=== PATIENT | female | born 1935 | race Caucasian/White ===

== ENCOUNTER → 2019-08-31 | Outpatient (CLI) | payer MEDICARE ==
--- NOTE | 2019-08-31 11:22 | US ---
EXAMINATION TYPE: US carotid duplex BILAT DATE OF EXAM: 08/31/2019 COMPARISON: NONE CLINICAL HISTORY: I65.29 CAROTID ARTERY STENOSIS. HTN, hx TIA x 7 years ago EXAM MEASUREMENTS: RIGHT: Peak Systolic Velocity (PSV) cm/sec ----- Right CCA: 54.8 ----- Right ICA: 143.7 ----- Right ECA: 73.6 ICA/CCA ratio: 2.6 RIGHT: End Diastole cm/sec ----- Right CCA: 8.7 ----- Right ICA: 45.1 ----- Right ECA: 0.0 LEFT: Peak Systolic Velocity (PSV) cm/sec ----- Left CCA: 60.1 ----- Left ICA: 111.3 ----- Left ECA: 61.8 ICA/CCA ratio: 1.9 LEFT: End Diastole cm/sec ----- Left CCA: 0.0 ----- Left ICA: 45.1 ----- Left ECA: 0.0 VERTEBRALS (direction of flow): Right Vertebral: Antegrade Left Vertebral: Antegrade Rhythm: Arrhythmia Plaque seen in bilateral bulbs and CCA. Elevated right distal ICA velocities. Right CCA significant stenosis. Bilateral wall thickening. IMPRESSION: 1. Bilateral atherosclerotic plaque with findings suggestive of a 50-69% stenosis involving the proxi mal right ICA. Correlate with dedicated CTA as clinically warranted. Criteria for Assigning % of Stenosis / Diameter reduction (Estimation based on the indirect measurements of the internal carotid artery velocities (ICA PSV). 1. Normal (no stenosis)=ICA PSV < 125 cm/s: ratio < 2.0: ICA EDV<40 cm/s. 2. Less than 50% stenosis=ICA PSV < 125 cm/s: ratio < 2.0: ICA EDV<40 cm/s. 3. 50 to 69% stenosis=ICA PSV of 125 to 230 cm/s: ration 2.0 ? 4.0: ICA EDV 40-100 cm/s. 4. Greater than 70% stenosis to near occlusion= ICA PSV > 230 cm/s: ratio > 4.0: ICA EDV > 100 cm/s. 5. Near occlusion= ICA PSV velocities may be low or undetectable: variable ratio and ICA EDV. 6. Total occlusion=unable to detect flow.
== END | disposition home or self-care (01) ==
LOC: RADUSWWP 10:52
PROVIDERS: ATTEND Family Medicine
DX: I65.23 Occlusion and stenosis of bilateral carotid arteries (principal)
CPT/HCPCS: 93880

== ENCOUNTER → 2021-09-03 | Outpatient (CLI) | payer MEDICARE | END | disposition home or self-care (01) | LOC: LABPAT 08:08 | PROVIDERS: ATTEND Orthopaedic Surgery | DX: Z01.812 Encounter for preprocedural laboratory examination (principal); M19.012 Primary osteoarthritis, left shoulder | CPT/HCPCS: 87070 ==

== ENCOUNTER 2021-09-04 06:20 | Observation (INO) | payer MEDICARE ==
[2021-08-28 11:49] VITALS: BMI 22.8
--- NOTE | 2021-09-03 10:36 | HP ---
HISTORY AND PHYSICAL CHIEF COMPLAINT: Left shoulder pain. HISTORY OF PRESENT ILLNESS: The patient is an 86-year-old retired female who presents with progressive left shoulder pain for the past several years, worsening over the past several months. She notes catching and pain with certain movements. She has night symptoms. She notes she is significantly limited because of this. She has tried previous conservative treatments to include anti-inflammatory medications and analgesics. She notes it limits her daily. PAST MEDICAL HISTORY: Significant for hypertension and transient ischemic attack, arthritis. PAST SURGICAL HISTORY: Significant for previous right total shoulder arthroplasty, previous olecranon and patellar fracture fixation. CURRENT MEDICATIONS: Aggrenox, Ambien, Lipitor, Norvasc, Zoloft, Lyrica, oxybutynin, oxybutynin, trazodone and Tylenol. ALLERGIES: SHE DENIES ISA DRUG ALLERGIES. FAMILY HISTORY: Noncontributory. SOCIAL HISTORY: Negative for current tobacco use; however, she quit in 1997. REVIEW OF SYSTEMS: Sixteen-point review of systems otherwise reviewed and is noncontributory. PHYSICAL EXAMINATION: On examination, the patient is approximately 4 feet 11 inches, 112 pounds of mesomorphic habitus. HEENT exam is nonfocal. Neck is supple. On examination of her left shoulder, she is tender about the anterior subacromial space. She has moderate crepitus. Active range of motion: Forward elevation 135 degrees, external rotation with arm to side 40 degrees, internal rotation to T12. Motor strength is 5 minus over 5 for abduction and external rotation. Impingement test, Neer test and Speed test are positive. Her distal neurovascular exam appears intact in the left upper extremity. AP and scapular outlet views along with axillary lateral views of the left shoulder show severe glenohumeral joint osteoarthrosis with [id number] changes and ossific loose bodies. The humeral head to acromial distance appears to be maintained. IMPRESSION: 1. Severe left glenohumeral joint osteoarthrosis. 2. History of transient ischemic attacks. RECOMMENDATIONS: I talked to the patient at length regarding her condition along with treatment options. At this point she is quite symptomatic and limited because of pain related to her osteoarthrosis despite conservative measures. After thorough discussion, she opted to proceed with surgery. We will plan to proceed with left total shoulder arthroplasty. Risks and benefits were discussed at length in layman's terms. She underwent preoperative medical evaluation by Dr. Puri. JOSSE / JOSEPH: [id number] /
[~2021-09-04 06:20] MED LIST: ACETAMINOPHEN TAB 500 MG TAB PO PRN; LACTATED RINGERS 1,000 ML IV SCH; MELOXICAM 7.5 MG TAB PO PRN; ONDANSETRON 4 MG/2 ML VIAL IVP ONE; TRANEXAMIC ACID 1,000 MG in SODIUM CHLORIDE 0.9% 100 ML IVPB PRN; fentaNYL (PF) 50 MCG/ML 2 ML AMP IV PRN
[2021-09-04] MEDS ORDERED: LIDOCAINE 1% (10MG/ML) FOR IV START INTRADERMA ONE (06:57)
[2021-09-04] MEDS ORDERED: MIDAZOLAM 2 MG/2 ML VIAL IVP ONE (07:07)
[2021-09-04] MEDS ORDERED: PROPOFOL 10 MG/ML 20 ML VIAL IV ONE (07:50)
[2021-09-04] MEDS ORDERED: fentaNYL (PF) 50 MCG/ML 2 ML AMP ONE (07:50)
[2021-09-04] MEDS ORDERED: TRANEXAMIC ACID 1,000 MG/10 ML VIAL ONE (07:50)
[2021-09-04] MEDS ORDERED: WATER FOR INJECTION, STERILE 10 ML VIAL IV ONE (07:50)
[2021-09-04] MEDS ORDERED: SODIUM CHLORIDE 0.9% 100 ML BAG ONE (07:50)
[2021-09-04] MEDS ORDERED: SUCCINYLCHOLINE CHLORIDE 100 MG/5 ML SYR IV ONE (07:50)
[2021-09-04] MEDS ORDERED: PHENYLEPHRINE-0.9% NACL SYG 1,000 MCG/10 ML SYRINGE ONE (07:50)
[2021-09-04] MEDS ORDERED: ROPIVACAINE 5 MG/ML 30 ML VIAL ONE ×2 (07:50)
[2021-09-04] MEDS ORDERED: ROCURONIUM 10 MG/ML (5 ML VIAL) IV ONE (07:50)
[2021-09-04] MEDS ORDERED: ePHEDrine 50 MG/ML 1 ML AMP ONE (07:50)
[2021-09-04] MEDS ORDERED: ONDANSETRON 4 MG/2 ML VIAL ONE (07:50)
[2021-09-04] MEDS ORDERED: ceFAZolin 1,000 MG in SODIUM CHLORIDE 0.9% 1,000 ML IRRIGATION ONE (08:32)
[2021-09-04] MEDS ORDERED: LACTATED RINGERS 1,000 ML IV ONE (09:27)
[2021-09-04] MEDS ORDERED: HYDROmorphone 0.5 MG/0.5 ML SYRINGE IVP PRN (09:41)
[2021-09-04] MEDS ORDERED: SENNOSIDES-DOCUSATE SODIUM 1 EACH TAB PO PRN (09:41)
--- NOTE | 2021-09-04 10:00 | P.OP ---
Date of Procedure: 09/04/21 Preoperative Diagnosis: Severe left glenohumeral joint osteoarthrosis Postoperative Diagnosis: Same Procedure(s) Performed: Left total shoulder arthroplasty Implants: [employer] size 10 press-fit humeral stem, size 10 body, 44 x 18 eccentric humeral head, 44 mm cemented pegged glenoid component. Anesthesia: isidra BERRIOS Surgeon: Jake Roger .Net Programmer #1: Douglas Grimm Estimated Blood Loss (ml): 100 Pathology: other (Humeral head) Condition: stable Disposition: PACU Indications for Procedure: The patient's an 86 year old female who presents with progressive left shoulder pain secondary osteoarthrosis despite conservative measures. A discussion of the risks and benefits of operative intervention versus continued conservative measures was made with patient. She opted to proceed with surgery. Operative risks to include infection, neurovascular injury, development of blood clots, fracture, possible component loosening/failure need for subsequent procedures was discussed. Informed consent was obtained. Operative Findings: As below Description of Procedure: The patient was brought to the operating room, and after induction of general anesthesia was placed in the beachchair position. The bony prominences were appropriately padded. The right upper extremity was prepped and draped in normal fashion. A deltopectoral incision was then made lateral to the coracoid process extending approximately 12 cm. The skin was incised sharply. Subcutaneous tissues were divided bluntly. Electrocautery was used for hemostasis. The deltopectoral interval was identified and the cephalic vein gently retracted laterally with the deltoid. Subdeltoid adhesions were bluntly dissected. A self-retaining retractor was placed. The clavipectoral fascia was opened and the conjoined tendon gently retracted medially. The upper one third of the pectoralis major was released to help facilitate exposure. The biceps was identified and the sheath was opened. The rotator interval was opened. The biceps was tenotomized and allowed to retract distally. The lesser tuberosity osteotomy was performed with a small sagittal saw. This completed with an osteotome. The humeral head was then exposed releasing the capsule off the humeral neck. The shoulder was gently dislocated. A starting hole was made in the head in line with the humeral shaft. The shaft was reamed by hand up to 10 mm. There is good distal chatter. The cutting guide was placed planning on a cut flush with the rotator cuff insertion and 30 of retroversion. The cutting block was pinned in place. The humeral head cut was then made. This measured most appropriately at 44 x 18 mm. Residual inferior osteophytes were carefully removed flush with the sac and [place] cortical bone. A posterior glenoid retractor was placed. The glenoid was then exposed releasing the labrum from the 6-12 o'clock position. Residual labral tissue was removed. The glenoid sized most appropriate 44 mm. A guidewire was then inserted planning on the appropriate version. The glenoid was reamed down to a bleeding bony surface. The central pedicle was drilled. The alignment guide was placed in the peripheral peg holes drilled. The trial size 44 mm glenoid was placed and was fully seated. There was good anterior to posterior and inferior to superior fit. The trial component was removed. Pulsatile lavage was utilized. The bony surface was dried. The peripheral peg holes were then pressurized with cement utilizing a syringe. Excess cement was removed. A central peg glenoid was then placed and was fully seated. This was gently impacted. This was held in place until the cement had sufficiently hardened. Attention was then paid again towards preparing the proximal humerus. The appropriate broach was placed in 30 of retroversion and was fully seated. An eccentric 44 x 18 mm humeral head was placed. The shoulder was gently reduced. It was taken through a range of motion. It was felt to be stable in flexion and extension with internal and external rotation. I felt there was adequate advent of soft tissue tension. The shoulder was gently dislocated. The trial components were then removed. A #2 Ethibond was placed laterally for reattachment of the lesser tuberosity. The humeral stem was inserted in 30 of retroversion and was fully seated. There was good rotational stability. The eccentric 44 x 18 mm humeral head was gently impacted. The shoulder was then gently reduced and taken through range of motion and was felt to be stable. Pulsatile lavage was utilized. Lesser tuberosity was reattached utilizing #2 Ethibond suture. The rotator interval was closed with #2 Ethibond suture. She had minimal drainage at this point therefore a deep drain was not placed. The deltopectoral interval was closed with interrupted 2-0 Vicryl sutures. The subcu tissues were reapproximated with interrupted 2-0 Vicryl sutures. The skin was reapproximated with 3-0 subcuticular Prolene suture. Steri-Strips were applied. A sterile dressing was applied in addition to a sling. The patient was then awoken from general anesthesia and transferred to recovery room in good condition. Blood loss was estimated at 100 mL. No complications were incurred. Sponge and needle counts were correct at the end the case. Douglas HINKLE assisted during the major components the case to include positioning, exposure, implantation, and closure.
--- NOTE | 2021-09-04 10:12 | P.ANPRN ---
Procedure Note - Anesthesia - Nerve Block Performed Left Interscalene Single Time Out Performed: Yes ([id number]) Date of Procedure: 09/04/21 Procedure Start Time: 07:08 Procedure Stop Time: 07:13 Location of Patient: PreOp Indication: Acute Post-Operative Pain, Requested by Surgeon Specifically requested for management of pain by : Jake Roger Sedation Type: Sedate with meaningful contact maintained Preparation: Sterile Prep Position: Supine Catheter: None Needle Types: Pajunk Needle Gauge: 21 Ultrasound used to visualize needle placement: Yes Ultrasound used to observe medication spread: Yes Injectate: 0.5% Ropivacaine (see comment for volume) (20cc) Blood Aspirated: No Pain Paresthesia on Injection Noted: No Resistance on Injection: Normal Image Stored and Saved: Yes Events: Uneventful and Well Tolerated
--- NOTE | 2021-09-04 10:24 | XR ---
EXAMINATION TYPE: XR shoulder limited LT DATE OF EXAM: 09/04/2021 COMPARISON: None HISTORY: Left shoulder arthroplasty TECHNIQUE: AP left shoulder FINDINGS: There is placement of the left shoulder prosthesis. Some degenerative changes noted at the glenoid. Postsurgical changes are present. No acute fractures are evident. IMPRESSION: 1. No acute fracture post left shoulder prosthesis placement.
[2021-09-04] MEDS: HYDROcodone/APAP 5-325MG 1 EACH TAB PO PRN (18:44)
[2021-09-04] MEDS: QUEtiapine 25 MG TAB PO SCH (20:56)
[2021-09-04] MEDS: PREGABALIN 100 MG CAP PO SCH (20:56)
[2021-09-04] MEDS: traZODone HCL 50 MG TAB PO SCH (20:56)
[2021-09-04] MEDS: ATORVASTATIN 20 MG TAB PO SCH (20:56)
[2021-09-04] MEDS: lamoTRIgine 25 MG TAB PO SCH (21:13)
[2021-09-05] MEDS: HYDROcodone/APAP 5-325MG 1 EACH TAB PO PRN (00:30)
[2021-09-05] MEDS ORDERED: SODIUM CHLORIDE 0.9% 500 ML 500 ML IV ONE (01:30)
[2021-09-05] MEDS: SODIUM CHLORIDE 0.9% 1,000 ML IV SCH ×2 (05:43→16:45)
[2021-09-05] MEDS ORDERED: hydroCHLOROthiazide 25 MG TAB PO SCH (09:00)
[2021-09-05] MEDS ORDERED: LOSARTAN 50 MG TAB PO SCH (09:00)
[2021-09-05 09:12] LABS: Basophils # (A) 0.03 X 10*3/uL (0.00-0.10); Basophils % (A) 0.5 %; Eosinophils # (A) 0.02 X 10*3/uL (0.04-0.35); Eosinophils % (A) 0.3 %; HCT 31.1 % (37.2-46.3); HGB 9.6 g/dL (12.0-15.0); Lymphocytes # (A) 0.87 X 10*3/uL (0.90-5.00); Lymphocytes % (A) 13.9 %; MCH 30.1 pg (27.0-32.0); MCHC 30.9 g/dL (32.0-37.0); MCV 97.5 fL (80.0-97.0); Mean Platelet Volume 10.8 fL (9.5-12.2); Monocytes # (A) 0.53 X 10*3/uL (0.20-1.00); Monocytes % (A) 8.4 %; Neutrophils # (A) 4.81 X 10*3/uL (1.80-7.70); Neutrophils % (A) 76.6 %; Platelet Count 209 X 10*3/uL (140-440); RBC 3.19 X 10*6/uL (4.10-5.20); RDW 14.4 % (11.5-14.5); WBC 6.28 X 10*3/uL (4.50-10.00)
[2021-09-05] MEDS: ASPIRIN 325 MG TAB PO SCH (09:17)
[2021-09-05] MEDS: PREGABALIN 100 MG CAP PO SCH ×2 (09:17→20:28)
[2021-09-05] MEDS: SERTRALINE 50 MG TAB PO SCH (09:17)
[2021-09-05] MEDS: PANTOPRAZOLE 40 MG/10 ML VIAL IVP SCH (11:29)
--- NOTE | 2021-09-05 12:21 | P.PN ---
Subjective Progress Note Date: 09/05/21 Principal diagnosis: Severe left glenohumeral joint osteoarthrosis Patient seen at bedside this morning resting sitting up in chair with sling on left arm. Patient describes she is a little shaky since surgery yesterday. She feels like her entire body's trembling. Patient does note she has had a low blood pressure since surgery. Patient says she was able have something to eat. Patient says she not had bowel movement yet, however, patient says she has been passing gas. Patient denies chest pain, fever, chest breath, nausea,change in vision, loss of bowel/bladder control. Objective - Vital Signs Vital signs: Vital Signs Temp 99.1 F 09/05/21 01:03 Pulse 98 09/05/21 08:44 Resp 17 09/05/21 08:44 BP 98/65 09/05/21 08:44 Pulse Ox 81 L 09/05/21 08:50 Intake & Output 09/04/21 09/05/21 09/05/21 18:59 06:59 18:59 Intake Total 1051 Output Total 100 Balance 951 Weight 52 kg Intake: IV 1051 Output: Estimated Blood Loss 100 Other: Voiding Method Toilet - Exam Left shoulder: Incision is clean, dry, and intact. The tape is in good condition. Is minimal soft tissue swelling and ecchymosis surrounding the incision in left shoulder Calf is soft, no tenderness with palpation. Plantar flexion, dorsiflexion, EHL, FHL are intact. Sensory exam to light touch throughout the extremity is intact, dorsal pedis pulses 2+. Patient has good range of motion in left elbow flexion/extension and in the flexion-extension of left wrist. Patient has full sensation bilaterally in upper extremities. Radial pulses intact, 2+ bilaterally - Labs CBC & Chem 7: 09/05/21 04:25 Labs: Abnormal Lab Results - Last 24 Hours (Table) 09/05/21 Range/Units 04:25 RBC 3.19 L (4.10-5.20) X 10*6/uL Hgb 9.6 L (12.0-15.0) g/dL Hct 31.1 L (37.2-46.3) % MCV 97.5 H (80.0-97.0) fL MCHC 30.9 L (32.0-37.0) g/dL Lymphocytes # 0.87 L (0.90-5.00) X 10*3/uL Eosinophils # 0.02 L (0.04-0.35) X 10*3/uL Assessment and Plan Assessment: 1. Severe left glenohumeral joint osteoarthrosis POD #1 s/p - Left total shoulder arthroplasty Plan: 1. Severe left glenohumeral joint osteoarthrosis- surgery performed yesterday, 09/04/2021- Left total shoulder arthroplasty. 2. Appreciate medical management 3. Pain management - discontinue Dilaudid [place]; ordered tramadol 50 mg 3 times a day, Tylenol 650 mg ordered for pain 4. DVT prophylaxis - aspirin 325 mg daily 5. GI prophylaxis - senna 6. PT/OT - keep sling on at all times; nonweightbearing left arm. Weightbearing as tolerated on other extremities 7. Discharge planning - plan discharge home tomorrow Time with Patient: Less than 30
[2021-09-05] MEDS: ACETAMINOPHEN TAB 325 MG TAB PO PRN (12:32)
[2021-09-05] MEDS: traMADol 50 MG TAB PO SCH ×2 (16:45→22:02)
[2021-09-05] MEDS: traZODone HCL 50 MG TAB PO SCH (20:28)
[2021-09-05] MEDS: ATORVASTATIN 20 MG TAB PO SCH (20:28)
[2021-09-05] MEDS: QUEtiapine 25 MG TAB PO SCH (20:28)
[2021-09-05] MEDS: lamoTRIgine 25 MG TAB PO SCH (20:29)
--- NOTE | 2021-09-05 21:45 | P.CONS ---
History of Present Illness - Reason for Consult Consult date: 09/05/21 medical eval - Chief Complaint L shoulder pain - History of Present Illness Nella Boone is a 86 yo F with PMH of OA, major depression, HTN who is admitted for schedule L total shoulder arthroplasty. She is POD#1 today, overall feeling well although complains of a fine tremor throughout her body and feeling shaky in general. Her BP has been running lower since her surgery most recently 80/60. She denies chest pain, shortness of breath, chills, leg swelling. Labs today reviewed and Hgb 9.6. Review of Systems All systems: negative Constitutional: Denies chills, Denies fever Eyes: denies blurred vision, denies pain Ears, nose, mouth and throat: Denies headache, Denies sore throat Cardiovascular: Denies chest pain, Denies shortness of breath Respiratory: Denies cough Gastrointestinal: Denies abdominal pain, Denies diarrhea, Denies nausea, Denies vomiting Genitourinary: Denies dysuria, Denies hematuria Musculoskeletal: Denies myalgias Integumentary: Denies pruritus, Denies rash Neurological: Reports tremors, Denies numbness, Denies weakness Psychiatric: Denies anxiety, Denies depression Endocrine: Denies fatigue, Denies weight change Past Medical History Past Medical History: CVA/TIA, Hypertension, Osteoarthritis (OA) Additional Past Medical History / Comment(s): questionable TIA few years ago, History of Any Multi-Drug Resistant Organisms: None Reported Past Surgical History: Back Surgery, Hysterectomy, Joint Replacement, Orthopedic Surgery Additional Past Surgical History / Comment(s): shattered left patella repair, fx. right elbow repair, rt shoulder replacement, lumbar fusion Past Anesthesia/Blood Transfusion Reactions: No Reported Reaction Past Psychological History: Anxiety, Depression Smoking Status: Former smoker Past Alcohol Use History: Daily Additional Past Alcohol Use History / Comment(s): quit smoking 30 yrs ago, smoked for 15 yrs, < 1 PPD, 1 glass wine every night Past Drug Use History: None Reported - Past Family History Mother Family Medical History: No Reported History Medications and Allergies Home Medications Medication Instructions Recorded Confirmed Type Atorvastatin [Lipitor] 20 mg PO HS 07/22/14 09/04/21 History Oxybutynin Xl [Ditropan XL] 5 mg PO DAILY 07/22/14 09/04/21 History Aspirin [Adult Low Dose Aspirin EC] 81 mg PO DAILY 08/28/21 09/04/21 History Ergocalciferol [Vitamin D2 (1250 1,250 mcg PO MO 08/28/21 09/04/21 History Mcg = [id number] Iu)] Losartan Potassium [Cozaar] 50 mg PO QAM 08/28/21 09/04/21 History Pregabalin [Lyrica] 100 mg PO BID 08/28/21 09/04/21 History QUEtiapine [SEROquel] 25 mg PO HS 08/28/21 09/04/21 History Sertraline [Zoloft] 50 mg PO DAILY 08/28/21 09/04/21 History Zolpidem [Ambien] 5 mg PO HS 08/28/21 09/04/21 History hydroCHLOROthiazide [Hydrodiuril] 25 mg PO DAILY 08/28/21 09/04/21 History lamoTRIgine [LaMICtal] 25 mg PO HS 08/28/21 09/04/21 History traZODone HCL 50 mg PO HS 08/28/21 09/04/21 History Allergies Allergy/AdvReac Type Severity Reaction Status Date / Time No Known Allergies Allergy Verified 08/28/21 11:34 Physical Exam Vitals: Vital Signs Temp Pulse Resp BP Pulse Ox 09/05/21 19:44 98.3 F 83 18 113/61 09/05/21 18:00 88/56 09/05/21 14:00 98.4 F 79 18 85/54 90 L 09/05/21 13:36 96 09/05/21 08:50 98 17 81 L 09/05/21 08:44 98 17 98/65 92 L 09/05/21 06:12 89/55 09/05/21 01:03 99.1 F 81 15 82/59 91 L Intake and Output 09/05/21 09/05/21 09/05/21 06:59 14:59 22:59 Other: Voiding Method Toilet # Voids 1 General: well nourished, well developed, NAD. Vitals reviewed Eyes: PERRL, EOMI, conjunctiva normal HENT: normocephalic, mucus membranes moist Neck: supple, no JVD Lungs: normal respiratory effort, no wheezes or rales CV: Regular rate and rhythm, no murmur. Peripheral pulses 2+ Abdomen: soft, nondistended, no organomegaly Lymph: no cervical or axillary LAD Skin: warm and dry. Neuro: A&Ox3, normal mood and affect. Fine intention tremor Results CBC & Chem 7: 09/05/21 04:25 Labs: Abnormal Lab Results - Last 24 Hours (Table) 09/05/21 Range/Units 04:25 RBC 3.19 L (4.10-5.20) X 10*6/uL Hgb 9.6 L (12.0-15.0) g/dL Hct 31.1 L (37.2-46.3) % MCV 97.5 H (80.0-97.0) fL MCHC 30.9 L (32.0-37.0) g/dL Lymphocytes # 0.87 L (0.90-5.00) X 10*3/uL Eosinophils # 0.02 L (0.04-0.35) X 10*3/uL Assessment and Plan Plan: 1. L shoulder OA s/p arthroplasty. Management per Ortho. Doing well today, continue ASA 2. Major depression. Continue lamictal, seroquel, trazodone 3. HTN. Hold antihypertensives. Continue IV fluids. Encourage her to advance diet 4. Tremor. Suspect anesthesia side effect. Continue to monitor
[2021-09-06] MEDS: SODIUM CHLORIDE 0.9% 1,000 ML IV SCH (04:14)
[2021-09-06] MEDS: PANTOPRAZOLE 40 MG/10 ML VIAL IVP SCH (08:32)
[2021-09-06] MEDS: ACETAMINOPHEN TAB 325 MG TAB PO PRN (08:37)
[2021-09-06 08:50] VITALS: PULSE 82
[2021-09-06] MEDS: ASPIRIN 325 MG TAB PO SCH (08:51)
[2021-09-06] MEDS: SERTRALINE 50 MG TAB PO SCH (08:51)
[2021-09-06] MEDS: traMADol 50 MG TAB PO SCH (08:51)
[2021-09-06] MEDS: PREGABALIN 100 MG CAP PO SCH (08:52)
[2021-09-06 09:51] VITALS: BP 111/76; RESP 18; TEMP 98
--- NOTE | 2021-09-06 10:16 | P.DS ---
Providers Date of admission: 09/04/2021 Expected date of discharge: 09/06/21 Attending physician: Jake Roger Consults: 09/04/21 10:02 Consult Physician Routine Consulting Provider: Azam Puri Reason/Comments: Medical Management s/p left total shoulder arthroplasty Do you want consulting provider notified?: Yes Primary care physician: Alla Puri [facility] Course: Date of admission: 09/04/2021 Date of discharge: 09/06/2021 Admission diagnosis: [] Discharge diagnosis: [] Attending physician: [] Surgical procedures: [] Brief history: Patient is a [] with a history of []. At this point patient has failed conservative treatment measures and has opted to proceed with a elective []. Hospital course: Details of patient's surgery can be found in operative report. Patient tolerated the procedure well and was subsequently transported to orthopedic floor. Patient's orthopeidc and medical care was provided daily. Patient had daily laboratory tests performed for evaluation of overall blood counts []. Patient had daily physical therapy to include strengthening range of motion as well as education with walker ambulation. Patient was treated with [Xarelto] for their postoperative DVT prophylaxis during their inpatient stay. Patient was noted to have a relatively uneventful postoperative course. Patient reported satisfactory pain control with oral pain medications by postoperative day []. Patient showed satisfactory progress with physical therapy. Patient moved steadily through the program and had no difficulty meeting the goals by postoperative day []. Given patient's otherwise satisfactory course and having met physical therapy goals, plan is to discharge patient [home] on postoperative day []. Discharge condition/disposition: Patient will be discharged [home] in stable condition. Discharge medications: Instructions are given on resumption of patient's normal daily medications per primary care recommendation, in addition patient will be prescribed []. Discharge instructions: 1. Wound care and infection precautions, [keep incision dry and covered while showering], no lotions, creams, moisturizers. No soaking, tubs, pools, hottubs. Do not scrub over the incision. 2. Weight-bear [as tolerated] with walker / cane until follow-up. 3. Ice and elevate when necessary. Do not exceed 20 minutes per hour with ice pack. 4. Utilize compression sleeve until seen at first follow up appointment. 5. Visiting nursing care. 6. Home physical therapy [including home CPM]. 7. Pain meds and anticoagulants per prescription. 8. Pain medication has potential to cause constipation. Increase oral fluid and fiber intake. Contact primary care provider if you have not had a bowel movement within 48 hours after discharge 9. No anti-inflammatory medication until discussed at first post operative visit, this including Motrin, Aleve, Mobic, Diclofenac, [Aspirin]. 10. Follow up in office at 2 weeks postop with Derrick Jackson PA-C / Douglas Grimm PA-C 11. Follow up with your primary care doctor 7-10 days after discharge. 12. Contact [facility] with any questions, . Assessment: Severe left glenohumeral joint osteoarthrosis Patient Condition at Discharge: Good Plan - Discharge Summary Discharge Rx Participant: Yes New Discharge Prescriptions: New Aspirin 325 mg PO DAILY #30 tab Docusate [Colace] 100 mg PO DAILY #30 capsule traMADol HCl [Ultram] 50 mg PO Q8H PRN #27 tab PRN Reason: Pain Discontinued Aspirin [Adult Low Dose Aspirin EC] 81 mg PO DAILY No Action Oxybutynin Xl [Ditropan XL] 5 mg PO DAILY Atorvastatin [Lipitor] 20 mg PO HS hydroCHLOROthiazide [Hydrodiuril] 25 mg PO DAILY lamoTRIgine [LaMICtal] 25 mg PO HS Losartan Potassium [Cozaar] 50 mg PO QAM Sertraline [Zoloft] 50 mg PO DAILY traZODone HCL 50 mg PO HS Zolpidem [Ambien] 5 mg PO HS Ergocalciferol [Vitamin D2 (1250 Mcg = 44240 Iu)] 1,250 mcg PO MO Pregabalin [Lyrica] 100 mg PO BID QUEtiapine [SEROquel] 25 mg PO HS Discharge Medication List Atorvastatin [Lipitor] 20 mg PO HS 07/22/14 [History] Oxybutynin Xl [Ditropan XL] 5 mg PO DAILY 07/22/14 [History] Ergocalciferol [Vitamin D2 (1250 Mcg = 39693 Iu)] 1,250 mcg PO MO 08/28/21 [History] Losartan Potassium [Cozaar] 50 mg PO QAM 08/28/21 [History] Pregabalin [Lyrica] 100 mg PO BID 08/28/21 [History] QUEtiapine [SEROquel] 25 mg PO HS 08/28/21 [History] Sertraline [Zoloft] 50 mg PO DAILY 08/28/21 [History] Zolpidem [Ambien] 5 mg PO HS 08/28/21 [History] hydroCHLOROthiazide [Hydrodiuril] 25 mg PO DAILY 08/28/21 [History] lamoTRIgine [LaMICtal] 25 mg PO HS 08/28/21 [History] traZODone HCL 50 mg PO HS 08/28/21 [History] Aspirin 325 mg PO DAILY #30 tab 09/06/21 [Rx] Docusate [Colace] 100 mg PO DAILY #30 capsule 09/06/21 [Rx] traMADol HCl [Ultram] 50 mg PO Q8H PRN #27 tab 09/06/21 [Rx] Follow up Appointment(s)/Referral(s): Douglas Grimm PAC [PHYSICIAN SIMULATION SOFTWARE ENGINEER] - 2 Weeks Azam Puri MD [STAFF PHYSICIAN] - 1 Week Activity/Diet/Wound Care/Special Instructions: Discharge instructions: 1. Wound care and infection precautions, keep incision dry and covered while showering, no lotions, creams, moisturizers. No soaking, tubs, pools, hottubs. Do not scrub over the incision. 2. Weight-bear as tolerated with walker / cane/independent until follow-up. Nonweightbearing left arm. keep left arm in sling 3. Ice when necessary. Do not exceed 20 minutes per hour with ice pack. 4. Pain meds and anticoagulants per prescription. 5. Pain medication has potential to cause constipation. Increase oral fluid and fiber intake. Contact primary care provider if you have not had a bowel movement within 48 hours after discharge 6. No anti-inflammatory medication until discussed at first post operative visit, this including Motrin, Aleve, Mobic, Diclofenac, 7. Follow up in office at 2 weeks postop with Derrick Jackson PA-C / Douglas Grimm PA-C 8. Follow up with your primary care doctor 7-10 days after discharge. 9. Contact [facility] with any questions, . Keep incision clean, dry, intact. While showering, cover incision with Saran wrap/stick and seal. Medications: Tramadol 50 mg; aspirin 325 mg daily 30 days; Colace Discharge Disposition: HOME SELF-CARE
--- NOTE | 2021-09-06 12:01 | P.PN ---
Subjective Progress Note Date: 09/06/21 Principal diagnosis: Severe left glenohumeral joint osteoarthrosis Patient seen at bedside this morning resting comfortably lying semirecumbent in bed with sling on left arm. Patient states she is doing much better this morning. She says she is not feeling shaky at all. Patient says she is ready to go home. Patient denies chest pain, fever, chest breath, nausea,change in vision, loss of bowel/bladder control. Objective - Vital Signs Vital signs: Vital Signs Temp 98.0 F 09/06/21 09:50 Pulse 82 09/06/21 09:50 Resp 18 09/06/21 09:50 BP 111/76 09/06/21 09:50 Pulse Ox 92 L 09/06/21 02:00 Intake & Output 09/05/21 09/06/21 09/06/21 18:59 06:59 18:59 Other: Voiding Method Toilet Toilet # Voids 1 2 - Exam Left shoulder: Incision is clean, dry, and intact. The tape is in good condition. Is minimal soft tissue swelling and ecchymosis surrounding the incision in left shoulder Calf is soft, no tenderness with palpation. Plantar flexion, dorsiflexion, EHL, FHL are intact. Sensory exam to light touch throughout the extremity is intact, dorsal pedis pulses 2+. Patient has good range of motion in left elbow flexion/extension and in the flexion-extension of left wrist. Patient has full sensation bilaterally in upper extremities. Radial pulses intact, 2+ bilaterally - Labs CBC & Chem 7: 09/05/21 04:25 Assessment and Plan Assessment: 1. Severe left glenohumeral joint osteoarthrosis POD #2 s/p - Left total shoulder arthroplasty Plan: 1. Severe left glenohumeral joint osteoarthrosis- surgery performed 09/04/2021- Left total shoulder arthroplasty. 2. Appreciate medical management 3. Pain management - going home with tramadol 50 mg 4. DVT prophylaxis - going home with aspirin 325 mg daily 30 days 5. GI prophylaxis - senna; going home with Colace 6. PT/OT - keep sling on at all times; nonweightbearing left arm. Weightbearing as tolerated on other extremities 7. Discharge planning - discharge home today Time with Patient: Less than 30
--- NOTE | 2021-09-07 10:35 | P.PN ---
Subjective Progress Note Date: 09/06/21 Nella Boone is a 86 yo F with PMH of OA, major depression, HTN who is admitted for schedule L total shoulder arthroplasty. She is POD#1 today, overall feeling well although complains of a fine tremor throughout her body and feeling shaky in general. Her BP has been running lower since her surgery most recently 80/60. She denies chest pain, shortness of breath, chills, leg swelling. Labs today reviewed and Hgb 9.6. 09/06/2021 significant clinical improvement. Pain controlled with current regimen. Significant improvement in tremors. Good diet intake with no nausea vomiting or diarrhea. Passing flatus, no bowel movement. BP WNL. Maintaining O2 sats in the 90s, incentive spirometer up to 1500. Denies any chest pain, palpitations or shortness of breath. Objective - Vital Signs Vital signs: Vital Signs Temp 98.0 F 09/06/21 09:50 Pulse 82 09/06/21 09:50 Resp 18 09/06/21 09:50 BP 111/76 09/06/21 09:50 Pulse Ox 90 L 09/06/21 10:44 Intake & Output 09/05/21 09/06/21 09/06/21 18:59 06:59 18:59 Other: Voiding Method Toilet Toilet # Voids 1 2 - Exam General: Sitting up in bed, NAD. Vitals reviewed Eyes: PERRL, EOMI, conjunctiva normal HENT: normocephalic, mucus membranes moist Neck: supple, no JVD Lungs: normal respiratory effort, no wheezes or rales CV: Regular rate and rhythm, no murmur. Peripheral pulses 2+ Abdomen: soft, nondistended, no organomegaly Skin: warm and dry. Neuro: A&Ox3, normal mood and affect. Improving Fine intention tremor - Labs CBC & Chem 7: 09/05/21 04:25 Assessment and Plan Assessment: 1. L shoulder OA s/p arthroplasty. Management per Ortho. Doing well today, continue ASA 2. Major depression. Continue lamictal, seroquel, trazodone 3. HTN. Hold antihypertensives. Continue IV fluids. Encourage her to advance diet 4. Tremor. Suspect anesthesia side effect. Continue to monitor 5. Atelectasis Plan: Continue on current medication regime, monitoring and symptomatic treatment. Pain management as per orthopedic surgery. Aggressive pulmonary toileting with patient to continue using incentive spirometer at home as previously advised. Follow-up with PCP in one week. The impression and plan of care has been dictated as directed. : I performed a history and examination of this patient, discussed the same with the dictator. I agree with the dictator's note ,documented as a scribe. Any additional findings or plans will be noted.
== END 2021-09-06 12:13 | disposition home or self-care (01) ==
LOC: OR 06:20 → 4SSUR 14:13 → OR 09-05 12:37 → 4SSUR 09-06 12:13
PROVIDERS: ADMIT Orthopaedic Surgery; ATTEND Orthopaedic Surgery
DX: M19.012 Primary osteoarthritis, left shoulder (principal); I10 Essential (primary) hypertension; F32.9 Major depressive disorder, single episode, unspecified; R25.1 Tremor, unspecified; J98.11 Atelectasis; F41.9 Anxiety disorder, unspecified; Z20.822 Contact with and (suspected) exposure to COVID-19; Z86.73 Personal history of transient ischemic attack (TIA), and cerebral infarction without residual deficits; Z87.891 Personal history of nicotine dependence; Z96.611 Presence of right artificial shoulder joint; Z79.899 Other long term (current) drug therapy; Z79.82 Long term (current) use of aspirin; Z90.710 Acquired absence of both cervix and uterus; Z98.1 Arthrodesis status; Z71.89 Other specified counseling
CPT/HCPCS: 64415; 76942; 85025; 88300; 87635; 73020; 23472; G0378 ×2; C1713; C1776; J2250; J0690 ×3; J2405; J3010; J2795; J2370; J0330; J2704; C9113 ×2; J1170

== ENCOUNTER → 2023-08-22 | Outpatient (CLI) | payer MEDICARE ==
--- NOTE | 2023-08-22 13:20 | CT ---
EXAMINATION TYPE: CT elbow LT wo con CT DLP: 180 mGycm, Automated exposure control for dose reduction was used. DATE OF EXAM: 08/22/2023 9:43 AM COMPARISON: . 08/21/2023 CLINICAL INDICATION:Female, 88 years old with history of M25.522; PHH, TECHNIQUE: Axial images were obtained of the CT elbow LT wo con, Additional coronal and sagittal refo rmatted images and soft tissue and bone window were obtained for review. 3-D reconstruction was creat ed on a separate workstation. Contrast used: mL of , (None if empty) Oral contrast used: (None if empty) FINDINGS: Comminuted fracture of the distal humerus with multiple fracture fragments extending into t he intra-articular portions of the elbow. There is no evidence for dislocation. There is gapping in d isplacement of the large medial supracondylar fragment. The radius and ulna appear intact and in appr opriate position. Soft tissue edema around the elbow. There is multiple rib fractures identified. IMPRESSION: 1. Comminuted intra-articular left elbow fracture with displacement. The radius and ulna appear inta ct. 2. Multiple left-sided rib fractures.
== END | disposition home or self-care (01) ==
LOC: RADCTMAIN 07:09
PROVIDERS: ATTEND Orthopaedic Surgery
DX: M24.822 Other specific joint derangements of left elbow, not elsewhere classified (principal); M95.4 Acquired deformity of chest and rib

== ENCOUNTER → 2024-07-28 | Outpatient (CLI) | payer MEDICARE ==
[2024-07-28 18:52] LABS: Blood Urea Nitrogen 15.6 mg/dL (9.0-27.0); Calcium 9.8 mg/dL (8.7-10.3); Carbon Dioxide 32.1 mmol/L (21.6-31.8); Chloride 101 mmol/L (96-109); Glucose 103 mg/dL (70-110); Potassium 3.9 mmol/L (3.5-5.5); Sodium 142 mmol/L (135-145)
[2024-07-28 19:09] LABS: Basophils # (A) 0.06 X 10*3/uL (0.00-0.10); Basophils % (A) 0.9 %; Eosinophils # (A) 0.05 X 10*3/uL (0.04-0.35); Eosinophils % (A) 0.7 %; HCT 39.5 % (37.2-46.3); Lymphocytes # (A) 1.21 X 10*3/uL (0.90-5.00); Lymphocytes % (A) 17.6 %; MCHC 32.9 g/dL (32.0-37.0); Mean Platelet Volume 11.6 FL (9.5-12.2); Monocytes # (A) 0.49 X 10*3/uL (0.20-1.00); Monocytes % (A) 7.1 %; NRBC Per 100 WBC 0 X 10*3/uL (0.00-0.01); Neutrophils # (A) 5.04 X 10*3/uL (1.80-7.70); Neutrophils % (A) 73.4 %; Platelet Count 246 X 10*3/uL (140-440); RBC 4.34 X 10*6/uL (4.10-5.20); RDW 14.6 % (11.5-14.5); WBC 6.87 X 10*3/uL (4.50-10.00)
[2024-07-28 19:28] LABS: INR 1.01 sec (0.93-1.11); Prothrombin Time 10.9 sec (9.9-11.9)
== END | disposition home or self-care (01) ==
LOC: LABPAT 12:53
PROVIDERS: ATTEND Orthopaedic Surgery
DX: Z01.812 Encounter for preprocedural laboratory examination (principal)
CPT/HCPCS: 36415; 80048; 85025; 85610

== ENCOUNTER → 2024-08-02 | Outpatient (CLI) | payer MEDICARE | END | disposition home or self-care (01) | LOC: LABPAT 14:50 | PROVIDERS: ATTEND Orthopaedic Surgery | DX: Z01.818 Encounter for other preprocedural examination (principal); Z22.322 Carrier or suspected carrier of Methicillin resistant Staphylococcus aureus; M17.11 Unilateral primary osteoarthritis, right knee | CPT/HCPCS: 87070 ==

== ENCOUNTER 2024-08-10 09:02 | Day surgery (SDC) | payer MEDICARE ==
--- NOTE | 2024-08-09 08:30 | P.HPOR ---
History of Present Illness H&P Date: 08/09/24 Chief Complaint: Right knee pain The patient is an 89-year-old retired female who presents with right knee pain for the past several years worsening over the past year. She notes anterior and lateral pain with weightbearing activities. She notes swelling and stiffness. Intermittently she has giving way. She has tried medications in addition to injections and use of a cane without significant relief. Review of Systems Per HPI Past Medical History Past Medical History: CVA/TIA, Hyperlipidemia, Hypertension, Osteoarthritis (OA) Additional Past Medical History / Comment(s): questionable TIA several years ago-no residual effects, urinary incontinence History of Any Multi-Drug Resistant Organisms: None Reported Past Surgical History: Back Surgery, Hysterectomy, Joint Replacement, Orthopedic Surgery Additional Past Surgical History / Comment(s): shattered left patella repair, fx. right elbow repair, brandon. shoulder replacement, lumbar fusion Past Anesthesia/Blood Transfusion Reactions: No Reported Reaction Additional Past Anesthesia/Blood Transfusion Reaction / Comment(s): states morphine lowered BP w/back surg. Smoking Status: Former smoker - Past Family History Mother Family Medical History: No Reported History Medications and Allergies Home Medications Medication Instructions Recorded Confirmed Type Oxybutynin Xl [Ditropan XL] 10 mg PO DAILY 07/22/14 08/05/24 History Ergocalciferol [Vitamin D2 (1250 1,250 mcg PO MO 08/28/21 08/05/24 History Mcg = 91239 Iu)] Pregabalin [Lyrica] 100 mg PO BID 08/28/21 08/05/24 History Sertraline [Zoloft] 100 mg PO DAILY 08/28/21 08/05/24 History hydroCHLOROthiazide [Hydrodiuril] 25 mg PO DAILY 08/28/21 08/05/24 History lamoTRIgine [LaMICtal] 50 mg PO HS 08/28/21 08/05/24 History traZODone HCL 50 mg PO HS 08/28/21 08/05/24 History traMADol HCl [Ultram] 50 mg PO Q8H PRN #27 tab 09/06/21 08/05/24 Rx Simvastatin [Zocor] 20 mg PO HS 08/05/24 08/05/24 History Calcium Carbonate [Calcium] 500 mg PO DAILY 08/06/24 08/06/24 History Allergies Allergy/AdvReac Type Severity Reaction Status Date / Time No Known Allergies Allergy Verified 08/05/24 09:29 Physical Examination - Knee right Appearance: effusion (right knee pain) Effusion grade: grade 1 Tenderness with palpation: anterior, medial, lateral Pain: throughout ROM Gait: limping ROM: extension: -15 degrees ROM: flexion: 120 degrees Crepitus with motion: Yes Strength: extension: 5/5 Strength: flexion: 5/5 Meniscal tests: medial meniscal tests: positive, lateral meniscal tests: positive, medial joint line pain: positive, lateral joint line pain: positive Results Patient is a well-developed well-nourished female female approximately 4 foot 11, 106 pounds of mesomorphic habitus. HEENT exam is nonfocal, neck is supple. She has painless passive motion of the right hip. Straight leg raise is negative. She is tender about the medial and lateral joint line of the right knee. Collaterals are stable, Eric's negative, Alex's is equivocal. She has genu valgum alignment. Her distal neurovascular appears intact in the right lower extremity. - Diagnostic results Knee x-ray: image reviewed (X-rays of the right knee obtained the office show severe tricompartmental osteoarthrosis with [id number] changes along with subchondral sclerosis.) Assessment and Plan Assessment: Right knee severe tricompartmental osteoarthrosis Plan: I talked to the patient at length regarding her condition along with treatment options. At this point she is quite symptomatic having pain and mechanical symptoms related to her right knee osteoarthrosis despite previous conservative measures. After a thorough discussion she opts to proceed with surgery. Will plan to proceed with right total knee arthroplasty. Risks and benefits were discussed at length in layman's terms. We will institute DVT prophylaxis postoperatively.
[~2024-08-10 09:02] MED LIST changes: -ACETAMINOPHEN TAB 500 MG TAB PO PRN; +HYDROmorphone 0.5 MG/0.5 ML SYRINGE IVP PRN; -LACTATED RINGERS 1,000 ML IV SCH; -MELOXICAM 7.5 MG TAB PO PRN; -ONDANSETRON 4 MG/2 ML VIAL IVP ONE; +TRANEXAMIC 1,000 MG/100ML-NACL 1,000 MG in SALINE 1 100ML.BAG IVPB PRN; -TRANEXAMIC ACID 1,000 MG in SODIUM CHLORIDE 0.9% 100 ML IVPB PRN; -fentaNYL (PF) 50 MCG/ML 2 ML AMP IV PRN
[2024-08-10] MEDS: IV FLUID CONTINUATION 1,000 ML IV ONE (09:22)
[2024-08-10] MEDS: ACETAMINOPHEN TAB 500 MG TAB PO PRN (09:37)
[2024-08-10] MEDS: MELOXICAM 7.5 MG TAB PO PRN (09:38)
[2024-08-10] MEDS: LACTATED RINGERS 1,000 ML IV SCH (09:39)
[2024-08-10] MEDS: ONDANSETRON 4 MG/2 ML VIAL IVP ONE (09:40)
[2024-08-10] MEDS: DEXAMETHASONE SOD PHOSPHATE 4 MG/ML 1 ML VIAL IV ONE (09:40)
[2024-08-10] MEDS: MIDAZOLAM 2 MG/2 ML VIAL IV PRN (09:51)
--- NOTE | 2024-08-10 10:14 | P.ANPRN ---
Procedure Note - Anesthesia - Nerve Block Performed Right Adductor Canal Infusion Time Out Performed: Yes (0950) Date of Procedure: 08/10/24 Procedure Start Time: 09:50 Procedure Stop Time: 10:05 Location of Patient: PreOp Indication: Acute Post-Operative Pain, Requested by Surgeon Sedation Type: Sedate with meaningful contact maintained Preparation: Sterile Prep, Sterile Dressing Position: Supine Catheter: Indwelling Needle Types: On-Q Needle Gauge: 18 Ultrasound used to visualize needle placement: Yes Ultrasound used to observe medication spread: Yes Injectate: 0.5% Ropivacaine (see comment for volume) (20 mL of block solution containing - 10 mL of 0.5% ropivacaine mixed with 10 mL of preservative-free normal saline) Blood Aspirated: No Pain Paresthesia on Injection Noted: No Resistance on Injection: Normal Image Stored and Saved: Yes Events: Uneventful and Well Tolerated
--- NOTE | 2024-08-10 10:15 | P.ANPRN ---
Procedure Note - Anesthesia - Nerve Block Performed Right iPack Single Time Out Performed: Yes (0950) Date of Procedure: 08/10/24 Procedure Start Time: 09:50 Procedure Stop Time: 10:05 Location of Patient: PreOp Indication: Acute Post-Operative Pain, Requested by Surgeon Sedation Type: Sedate with meaningful contact maintained Preparation: Sterile Prep, Sterile Dressing Position: Supine Catheter: None Needle Types: Pajunk Needle Gauge: 21 Ultrasound used to visualize needle placement: Yes Ultrasound used to observe medication spread: Yes Injectate: 0.5% Ropivacaine (see comment for volume) (20 mL of block solution containing - 10 mL of 0.5% ropivacaine mixed with 10 mL of preservative-free normal saline) Blood Aspirated: No Pain Paresthesia on Injection Noted: No Resistance on Injection: Normal Image Stored and Saved: Yes Events: Uneventful and Well Tolerated
[2024-08-10] MEDS ORDERED: ROPIVACAINE 5 MG/ML 30 ML VIAL ONE (12:18)
[2024-08-10] MEDS ORDERED: diphenhydrAMINE 50 MG/ML 1 ML VIAL ONE (12:18)
[2024-08-10] MEDS ORDERED: LIDOCAINE 1% INJ 10MG/ML (20 ML MDV) ONE (12:18)
[2024-08-10] MEDS ORDERED: SODIUM CHLORIDE 0.9% (PF) 10 ML VIAL ONE (12:18)
[2024-08-10] MEDS ORDERED: TRANEXAMIC 1,000 MG/100ML-NACL PREMIX BAG ONE (12:18)
[2024-08-10] MEDS ORDERED: PROPOFOL 10 MG/ML 20 ML VIAL IV ONE (12:18)
[2024-08-10] MEDS: LACTATED RINGERS 1,000 ML IV ONE (12:22)
[2024-08-10] MEDS: ceFAZolin 1,000 MG in SODIUM CHLORIDE 0.9% 1,000 ML IRRIGATION ONE (12:48)
[2024-08-10] MEDS ORDERED: ACETAMINOPHEN TAB 325 MG TAB PO PRN (13:55)
[2024-08-10] MEDS ORDERED: ONDANSETRON 4 MG/2 ML VIAL IVP PRN (13:55)
[2024-08-10] MEDS ORDERED: NALOXONE 0.4 MG/ML 1 ML VIAL IV PRN (13:55)
[2024-08-10] MEDS ORDERED: MAGNESIUM HYDROXIDE 2,400 MG/30 ML CUP PO PRN (13:55)
[2024-08-10] MEDS ORDERED: HYDROmorphone 0.5 MG/0.5 ML SYRINGE IVP PRN (13:55)
--- NOTE | 2024-08-10 14:04 | P.OP ---
Date of Procedure: 08/10/24 Preoperative Diagnosis: Right knee severe tricompartmental osteoarthrosis Postoperative Diagnosis: Same Procedure(s) Performed: Right total knee arthroplastycementedcruciate retaining Implants: DePuy attune size 5 narrow cemented femoral component, size 5 cemented tibial component, 9 mm articular surface, 38 mm cemented patellar component. This is a cruciate retaining implant. Anesthesia: regional, spinal Surgeon: Jake Roger Pleater #1: Douglas Grimm Estimated Blood Loss (ml): 50 Pathology: none sent Condition: stable Disposition: PACU Indications for Procedure: The patient is an 89-year-old female who presents with progressive right knee pain secondary to osteoarthrosis despite conservative measures. A discussion of the risks and benefits of operative intervention versus continued conservative measures was made with the patient. She opted to proceed with surgery. Operative risks include infection, neurovascular injury, development of blood clots, fracture, possible component loosening/failure and possible need for subsequent procedures was discussed. Informed consent was obtained. Operative Findings: As below Description of Procedure: The patient was brought to the operating room, and after induction of spinal anesthesia the right lower extremity was prepped and draped in a normal fashion. The tourniquet was inflated to 270 mmHg. A longitudinal incision extending 3 finger breaths above the superior pole of the patella extending to the medial aspect the tibial tubercle was then made. The skin and subcutaneous tissues were divided sharply. Electrocautery was used for hemostasis. A medial parapatellar arthrotomy was then performed. The medial soft tissues to include the superficial and deep portions of the medial collateral ligament as well as the medial hamstring tendons were elevated subperiosteally. The proximal medial tibia osteophytes were carefully removed. The patella was everted. The knee was flexed. A portion of the retropatellar fat pad was excised sharply. The anterior cruciate ligament was sacrificed. A starting hole was made in the distal femur 1 cm anterior to the posterior cruciate origin. An intramedullary femoral guide was gently inserted planning on 5 valgus distal cut with 9 mm distal resection. The cutting block was pinned in place. The distal cut was then made. The posterior referencing sizing guide was utilized. 3 of external rotation was built into the system and verified off the trans- epicondylar axis and the posterior condyles. I felt size 5 narrow was most appropriate. The cutting block was pinned in place. The anterior, posterior, and chamfer cuts were then made. The bone fragments were removed. A sulcus cut was then made with the appropriate guide. The trial size 5 narrow femoral component was then placed and was fully seated. There was good anterior to posterior and medial to lateral fit. The distal peg holes were then drilled. The trial component was then removed. Attention was then paid towards preparing the proximal tibia. An extra medullary guide was utilized in line with the tibial shaft and second metatarsal distally. A 7 posterior slope was planned. I planned on 2 mm resection from the medial compartment. The cutting block was pinned in place. The proximal tibial cut was then made. The bone was removed in one fragment. The remnants of the medial and lateral menisci were excised the capsule junction with electrocautery. The tibia sized most appropriately at size 5. The posterior osteophytes off the distal femur were carefully removed with a curved osteotome. The trial tibial and femoral components were placed along with a 9 millimeters articular surface. I was able to obtain full flexion and extension with good stability with varus and valgus stress. After several flexion and extension cycles, the tibial rotation was marked with electrocautery in line with the medial one third of the tibial tubercle. Attention was then paid towards preparing the patella. A patella reamer was utilized taking this down to 14 mm of bone stock. A good flush cut was made. The patella sized most appropriately at 38 millimeters. The peg holes were then drilled. The trial component was placed. The knee was taken through a range of motion. I had good patellofemoral tracking with no hands technique. The trial components were then removed. The tibia was prepared in the appropriate rotation with appropriate drill and keel punch. The flexion and extension gaps were checked and felt to be symmetric. The bony surfaces were prepared with pulsatile lavage and dried. The deep tibial component was then cemented in place and was fully seated. Excess cement was removed. The femoral component was cemented in place and was fully seated. Again excess cement was removed. The trial 9 millimeters surface was then inserted in the knee was put in full extension. The patella component was cemented in place. After the cement had sufficiently hardened, the knee was again taken through a range of motion. Again there was good stability in flexion and extension with varus and valgus stress. The trial articular surface was then removed. The final articular surface was placed and was impacted. Care was taken to avoid any soft tissue interposition. Pulsatile lavage was again utilized. The tourniquet was deflated with approximately 60 minutes total tourniquet time. There was minimal drainage therefore a deep drain was not placed. The medial parapatellar arthrotomy was then closed with #2 Ethibond suture. The subcutaneous tissues were reapproximated interrupted 2- 0 Vicryl sutures. The skin was reapproximated with 3-0 subarticular strata fix suture. Skin tape and adhesive was applied. A sterile dressing was applied. The patient was then awoken from sedation and transferred to recovery room in good condition. Blood loss was estimated at 50 milliliters. No complications were incurred. Sponge and needle counts were correct at the end the case. Douglas HINKLE assisted during the major components this case to include exposure, bone resection, and implantation.
--- NOTE | 2024-08-10 14:27 | XR ---
EXAMINATION TYPE: XR knee limited RT DATE OF EXAM: 08/10/2024 2:21 PM COMPARISON: None. CLINICAL INDICATION: Female, 89 years old with history of Evaluation for Postop abnormality and align ment, TECHNIQUE: 2 view(s) obtained. FINDINGS: Tibial and femoral components in place. Postsurgical changes are within the soft tissues. Moderate pradeep int effusion is present. No acute fractures identified. IMPRESSION: 1. No acute fracture post placement 2. Moderate joint effusion [facility], , 08/10/2024 2:25 PM
[2024-08-10] MEDS: ROPIVACAINE 1,100 MG, SODIUM CHLORIDE 0.9% 500 ML 330 ML, EMPTY PAIN BALL 1 EACH MISCELLANE STA (14:36)
[2024-08-10] MEDS: HYDROmorphone 0.5 MG/0.5 ML SYRINGE IVP PRN (16:56)
[2024-08-10] MEDS: SENNOSIDES-DOCUSATE SODIUM 1 EACH TAB PO SCH (21:08)
[2024-08-10] MEDS: traMADol 50 MG TAB PO PRN (21:09)
[2024-08-11] MEDS: Acetaminophen-Codeine 300-30mg TAB PO PRN (01:03)
--- NOTE | 2024-08-11 06:46 | P.PN ---
Progress Note - Text Progress Note Date: 08/11/24 patient was seen and evaluated at bedside. Status post postoperative day 1 for right total knee arthroplasty patient had adductor canal catheter for postop pain control. Patient rated pain at rest 4 out of 10 in severity. Patient describes pain is aching, throbbing type on the sides of the knee and back of the knee. Patient started walking with support. With activity patient pain levels are 6-7 out of 10 in severity. With the help of oral pain medications pain levels are tolerable. Patient denied any weakness/ numbness in lower extremities. patient denied any fever, pain over the catheter site. Physical exam: Patient vital signs stable Patient is alert awake oriented 3 responding to all questions appropriately Examination of the catheter site showed dressing intact, no leaking fluid around the catheter, no redness, no tenderness over the catheter insertion area. plan: status post postoperative day 1 for right total knee arthroplasty with adductor canal catheter for pain control. Patient was discussed to continue the medication at the rate of 8 mL per hour until the pump is completely empty and instructed the patient how to discontinue the catheter
[2024-08-11] MEDS: RIVAROXABAN 10 MG TAB PO SCH (08:07)
[2024-08-11 08:14] VITALS: BP 109/55; PULSE 70; RESP 17; TEMP 98.9
[2024-08-11] MEDS ORDERED: IPRATROPIUM-ALBUTEROL 3 ML NEB INHALATION PRN (08:28)
[2024-08-11 09:18] LABS: Basophils # (A) 0.04 X 10*3/uL (0.00-0.10); Basophils % (A) 0.4 %; Eosinophils # (A) 0.01 X 10*3/uL (0.04-0.35); Eosinophils % (A) 0.1 %; HCT 30.5 % (37.2-46.3); HGB 9.8 g/dL (12.0-15.0); Lymphocytes # (A) 0.98 X 10*3/uL (0.90-5.00); Lymphocytes % (A) 10.3 %; MCH 30.2 pg (27.0-32.0); MCHC 32.1 g/dL (32.0-37.0); MCV 94.1 FL (80.0-97.0); Mean Platelet Volume 11.5 FL (9.5-12.2); Monocytes # (A) 0.86 X 10*3/uL (0.20-1.00); NRBC Per 100 WBC 0 X 10*3/uL (0.00-0.01); Neutrophils # (A) 7.59 X 10*3/uL (1.80-7.70); Neutrophils % (A) 79.8 %; Platelet Count 235 X 10*3/uL (140-440); RBC 3.24 X 10*6/uL (4.10-5.20); RDW 14.6 % (11.5-14.5); WBC 9.52 X 10*3/uL (4.50-10.00)
[2024-08-11] MEDS: OXYBUTYNIN 10 MG TAB.ER.24 PO SCH (10:06)
--- NOTE | 2024-08-11 10:09 | P.CONS ---
History of Present Illness - Reason for Consult Consult date: 08/11/24 Medical management Requesting physician: Jake Roger - Chief Complaint Osteoarthritis of the right knee status post - History of Present Illness This is an 89-year-old female with past medical history significant for osteoarthritis, COPD, prior nicotine dependence-less than 1 pack/day x 15 years- quit 30 years ago, hypertension, hyperlipidemia, CVA/TIA, anxiety, depression and multiple other medical issues, status post right total knee arthroplasty. Tolerated procedure well. Reports has been up to the bathroom during the night, tolerated exertion well. PT pending. Positive pain currently rating at a 4-5 on current regimen. Passing flatus. Denies lightheadedness dizziness or focal deficits. Denies chest pain, palpitations or shortness of breath. Patient is wearing 2 L nasal cannula O2 maintaining O2 sats in the low 90s ,which she states she does not wear at home. Review of Systems Constitutional: Denied any fatigue denied any fever. Cardio vascular: denied any chest pain, palpitations Gastrointestinal denied any nausea vomiting Pulmonary: Denied any shortness of breath cough Neurologic denied any new focal deficits ROS Statement: Those systems with pertinent positive or pertinent negative responses have been documented in the HPI. ROS Other: All systems not noted in ROS Statement are negative. Past Medical History Past Medical History: CVA/TIA, Hyperlipidemia, Hypertension, Osteoarthritis (OA) Additional Past Medical History / Comment(s): questionable TIA several years ago-no residual effects, urinary incontinence History of Any Multi-Drug Resistant Organisms: None Reported Past Surgical History: Back Surgery, Hysterectomy, Joint Replacement, Orthopedic Surgery Additional Past Surgical History / Comment(s): shattered left patella repair, fx. right elbow repair, brandon. shoulder replacement, lumbar fusion Past Anesthesia/Blood Transfusion Reactions: No Reported Reaction Additional Past Anesthesia/Blood Transfusion Reaction / Comm: states morphine lowered BP w/back surg. Past Psychological History: Anxiety, Depression Smoking Status: Former smoker Past Alcohol Use History: Daily Additional Past Alcohol Use History / Comment(s): quit smoking 30 yrs ago, smoked for 15 yrs, < 1 PPD, 1 glass wine every night Past Drug Use History: None Reported - Past Family History Mother Family Medical History: No Reported History Medications and Allergies Home Medications Medication Instructions Recorded Confirmed Type Oxybutynin Xl [Ditropan XL] 10 mg PO DAILY 07/22/14 08/10/24 History Ergocalciferol [Vitamin D2 (1250 1,250 mcg PO MO 08/28/21 08/10/24 History Mcg = 84493 Iu)] Pregabalin [Lyrica] 100 mg PO BID 08/28/21 08/10/24 History Sertraline [Zoloft] 100 mg PO DAILY 08/28/21 08/10/24 History hydroCHLOROthiazide [Hydrodiuril] 25 mg PO DAILY 08/28/21 08/10/24 History lamoTRIgine [LaMICtal] 50 mg PO HS 08/28/21 08/10/24 History traZODone HCL 50 mg PO HS 08/28/21 08/10/24 History traMADol HCl [Ultram] 50 mg PO Q8H PRN #27 tab 09/06/21 08/10/24 Rx Simvastatin [Zocor] 20 mg PO HS 08/05/24 08/10/24 History Calcium Carbonate [Calcium] 500 mg PO DAILY 08/06/24 08/10/24 History Allergies Allergy/AdvReac Type Severity Reaction Status Date / Time No Known Allergies Allergy Verified 08/10/24 09:33 Physical Exam Vitals: Vital Signs Temp Pulse Resp BP Pulse Ox 08/11/24 07:20 91 L 08/11/24 07:15 98.9 F 70 17 109/55 79 L 08/11/24 00:53 98.3 F 66 15 106/62 93 L 08/10/24 19:18 98.3 F 59 L 15 118/54 100 08/10/24 16:00 97.8 F 88 17 114/70 98 08/10/24 15:45 60 14 126/59 98 08/10/24 15:30 62 16 141/63 98 08/10/24 15:15 62 16 138/63 98 08/10/24 15:00 63 16 133/59 97 08/10/24 14:45 63 16 163/73 99 08/10/24 14:30 62 16 147/72 99 08/10/24 14:15 61 14 146/67 98 08/10/24 14:00 98.0 F 60 14 138/99 92 L 08/10/24 10:09 55 L 16 138/59 100 08/10/24 09:54 55 L 16 160/74 100 Intake and Output 08/10/24 08/11/24 08/11/24 22:59 06:59 14:59 Intake Total 250 Output Total 0 Balance 0 250 Intake: Oral 250 Output: Urine 0 Other: # Voids 0 4 Weight 47 kg PHYSICAL EXAM: VITAL SIGNS: [Reviewed] GENERAL: Alert and oriented x 3, sitting up in bed, no acute distress HEENT: Normocephalic, atraumatic ,conjunctivae normal. eyes normal. MMM. NECK: Supple, no JVD. No thyroid enlargement. No LNs CARDIOVASCULAR: S1, S2 regular.. No murmur RESPIRATION: Unlabored, equal air entry, clear to auscultation , bilateral bases diminished. ABDOMEN: Soft, nondistended, nontender . No guarding. no masses palpable. No ascites, No hepatosplenomegaly.Bowel sounds heard. LEGS: Right lower extremity dressing clean dry and intact, minimal edema. No calf tenderness, no clubbing, no cyanosis, positive DP pulse. NERVOUS SYSTEM: Cranial N 2-12 grossly normal. No focal deficits. Strength and sensation grossly intact. Skin: Warm and dry, no rash. Results CBC & Chem 7: 08/11/24 02:50 Labs: Abnormal Lab Results - Last 24 Hours (Table) 08/11/24 Range/Units 02:50 RBC 3.24 L (4.10-5.20) X 10*6/uL Hgb 9.8 L (12.0-15.0) g/dL Hct 30.5 L (37.2-46.3) % RDW 14.6 H (11.5-14.5) % Eosinophils # 0.01 L (0.04-0.35) X 10*3/uL Assessment and Plan Assessment: Osteoarthritis status post right total knee arthroplasty Postoperative atelectasis, expected outcome Postoperative blood loss anemia, expected outcome. Preop hemoglobin 13, postop hemoglobin 9.8. COPD, stable Prior nicotine dependence Hypertension Hyperlipidemia History of CVA, TIA Anxiety Depression Hospital course: Continue on current medication resume ,monitoring and symptomatic treatment. Aggressive pulmonary toileting with incentive spirometer reinforced, nebulized bronchodilators ordered. Pain management, DVT prophylaxis as per primary. PT pending. Follow-up with PCP in 1 week. Thank you for the consult. The impression and plan of care has been dictated as directed. : I performed a history and examination of this patient, discussed the same with the dictator. I agree with the dictator's note ,documented as a scribe. Any additional findings or plans will be noted.
--- NOTE | 2024-08-11 10:37 | P.PN ---
Subjective Progress Note Date: 08/11/24 Principal diagnosis: Status post right total knee arthroplasty Patient evaluated at bedside, she is resting in her hospital chair. Patient is progressing well at this time. She did well with physical therapy. Her pain is well-controlled. She denies headaches, lightheadedness, chest pain or shortness of breath Objective - Vital Signs Vital signs: Vital Signs Temp 98.9 F 08/11/24 07:15 Pulse 70 08/11/24 07:15 Resp 17 08/11/24 07:15 BP 109/55 08/11/24 07:15 Pulse Ox 98 08/11/24 10:10 FiO2 Intake & Output 08/10/24 08/11/24 08/11/24 18:59 06:59 18:59 Intake Total 901 250 Output Total 50 Balance 851 250 Weight 47 kg Intake: IV 901 Oral 250 Output: Urine 0 Estimated Blood Loss 50 Other: # Voids 0 4 - Exam Right lower extremity: Incision is clean, dry, and intact. The exofin fusion tape is in good condition. There is minimal soft tissue swelling and ecchymosis surrounding the medial and lateral aspects of the incision. Calf is soft, no tenderness with palpation. Plantar flexion, dorsiflexion, EHL, FHL are intact. Sensory exam to light touch throughout the extremity is intact, dorsal pedis pulses 2+. - Labs CBC & Chem 7: 08/11/24 02:50 Labs: Abnormal Lab Results - Last 24 Hours (Table) 08/11/24 Range/Units 02:50 RBC 3.24 L (4.10-5.20) X 10*6/uL Hgb 9.8 L (12.0-15.0) g/dL Hct 30.5 L (37.2-46.3) % RDW 14.6 H (11.5-14.5) % Eosinophils # 0.01 L (0.04-0.35) X 10*3/uL Assessment and Plan Assessment: Postoperative day #1 status post right total knee arthroplasty Plan: Pain control, plan to utilize Tylenol 3 and tramadol 50 mg\. Will also utilize stool softeners at discharge Wound care, we did discuss showering and On-Q pain catheter removal Home PT/nursing after discharge Icing and elevating techniques discussed Medical recommendations appreciated Discharge planning stable for discharge home today Time with Patient: Less than 30
--- NOTE | 2024-08-11 10:43 | P.DS ---
Providers Date of admission: 08/10/2024 Expected date of discharge: 08/11/24 Attending physician: Jake Roger Consults: 08/10/24 13:55 Consult Physician Routine Consulting Provider: Azam Puri Consult Reason/Comments: medical management s/p right total knee arthroplasty Do you want consulting provider notified?: Yes Primary care physician: Azam Puri MD Hospital Course: Date of admission: 08/10/2024 Date of discharge: 08/11/2024 Admission diagnosis: Status post right total knee arthroplasty Discharge diagnosis: Same Attending physician: Dr. Roger Surgical procedures: Right total knee arthroplasty Brief history: Patient is a 89-year-old female with a history of progressive primary right knee osteoarthritis. At this point patient has failed conservative treatment measures and has opted to proceed with a elective right total knee arthroplasty. Hospital course: Details of patient's surgery can be found in operative report. Patient tolerated the procedure well and was subsequently transported to orthopedic floor. Patient's orthopeidc and medical care was provided daily. Patient had daily laboratory tests performed for evaluation of overall blood c ounts. Patient had daily physical therapy to include strengthening range of motion as well as education with walker ambulation. Patient was treated with Xarelto for their postoperative DVT prophylaxis during their inpatient stay. Patient was noted to have a relatively uneventful postoperative course. Patient reported satisfactory pain control with oral pain medications by postoperative day 0. Patient showed satisfactory progress with physical therapy. Patient moved steadily through the program and had no difficulty meeting the goals by postoperative day 1. Given patient's otherwise satisfactory course and having met physical therapy goals, plan is to discharge patient home on postoperative day 1. Discharge condition/disposition: Patient will be discharged home in stable condition. Discharge medications: Instructions are given on resumption of patient's normal daily medications per primary care recommendation, in addition patient will be prescribed tramadol 50 mg, Tylenol 3, senna S, aspirin 81 mg. Discharge instructions: 1. Wound care and infection precautions, keep incision dry and covered while showering, no lotions, creams, moisturizers. No soaking, tubs, pools, hottubs. Do not scrub over the incision. 2. Weight-bear as tolerated with walker / cane until follow-up. 3. Ice and elevate when necessary. Do not exceed 20 minutes per hour with ice pack. 4. Utilize compression sleeve until seen at first follow up appointment. 5. Visiting nursing care. 6. Home physical therapy including home CPM. 7. Pain meds and anticoagulants per prescription. 8. Pain medication has potential to cause constipation. Increase oral fluid and fiber intake. Contact primary care provider if you have not had a bowel movement within 48 hours after discharge 9. No anti-inflammatory medication until discussed at first post operative visit, this including Motrin, Aleve, Mobic, Diclofenac. 10. Follow up in office at 2 weeks postop with Derrick Jackson PA-C/Douglas Bennett 11. Follow up with your primary care doctor 7-10 days after discharge. 12. Contact [facility] with any questions, . Procedures: Right total knee arthroplasty Patient Condition at Discharge: Good Plan - Discharge Summary Discharge Rx Participant: Yes New Discharge Prescriptions: New Acetaminophen-Codeine 300-30mg [Tylenol w/codeine #3] 1 tab PO Q6H PRN 3 Days #28 tablet PRN Reason: Pain traMADol HCl [Ultram] 50 mg PO Q6H PRN #28 tab Aspirin [Adult Low Dose Aspirin EC] 81 mg PO BID #60 tab Sennosides/Docusate Sodium [Senna-S 8.6-50 mg Tablet] 2 each PO DAILY PRN #30 tablet PRN Reason: Constipation No Action Oxybutynin Xl [Ditropan XL] 10 mg PO DAILY hydroCHLOROthiazide [Hydrodiuril] 25 mg PO DAILY lamoTRIgine [LaMICtal] 50 mg PO HS Sertraline [Zoloft] 100 mg PO DAILY traZODone HCL 50 mg PO HS Calcium Carbonate [Calcium] 500 mg PO DAILY Ergocalciferol [Vitamin D2 (1250 Mcg = 34462 Iu)] 1,250 mcg PO MO Pregabalin [Lyrica] 100 mg PO BID traMADol HCl [Ultram] 50 mg PO Q8H PRN #27 tab PRN Reason: Pain Simvastatin [Zocor] 20 mg PO HS Discharge Medication List Oxybutynin Xl [Ditropan XL] 10 mg PO DAILY 07/22/14 [History] Ergocalciferol [Vitamin D2 (1250 Mcg = 76633 Iu)] 1,250 mcg PO MO 08/28/21 [History] Pregabalin [Lyrica] 100 mg PO BID 08/28/21 [History] Sertraline [Zoloft] 100 mg PO DAILY 08/28/21 [History] hydroCHLOROthiazide [Hydrodiuril] 25 mg PO DAILY 08/28/21 [History] lamoTRIgine [LaMICtal] 50 mg PO HS 08/28/21 [History] traZODone HCL 50 mg PO HS 08/28/21 [History] traMADol HCl [Ultram] 50 mg PO Q8H PRN #27 tab 09/06/21 [Rx] Simvastatin [Zocor] 20 mg PO HS 08/05/24 [History] Calcium Carbonate [Calcium] 500 mg PO DAILY 08/06/24 [History] Acetaminophen-Codeine 300-30mg [Tylenol w/codeine #3] 1 tab PO Q6H PRN 3 Days #28 tablet 08/11/24 [Rx] Aspirin [Adult Low Dose Aspirin EC] 81 mg PO BID #60 tab 08/11/24 [Rx] Sennosides/Docusate Sodium [Senna-S 8.6-50 mg Tablet] 2 each PO DAILY PRN #30 tablet 08/11/24 [Rx] traMADol HCl [Ultram] 50 mg PO Q6H PRN #28 tab 08/11/24 [Rx] Follow up Appointment(s)/Referral(s): Douglas Grimm PAC [PHYSICIAN TRAIN ENGINEER] - 08/26/24 9:00 am Patient Instructions/Handouts: Knee Replacement (GEN) Activity/Diet/Wound Care/Special Instructions: Orthopedic Discharge Instructions: 1. Wound care and infection precautions, keep incision dry and covered while showering, no lotions, creams, moisturizers. No soaking, pools, hot tubs. Do not scrub over incision. 2. Weight-bear as tolerated with walker / cane until follow-up. 3. Ice and elevate when necessary. Do not exceed 20 minutes per hour with ice pack. 4. Utilize compression sleeve until seen at first follow up appointment. 5. Pain meds and anticoagulants per prescription. 6. Pain medication has potential to cause constipation. Increase oral fluid and fiber intake. Contact primary care provider if you have not had a bowel movement within 48 hours after discharge. 7. No anti-inflammatory medication until discussed at first post operative visit, this including Motrin, Aleve, Mobic, Diclofenac. 8. Follow up in office at 2 weeks postop with Derrick Jackson PA-C / Douglas Grimm PA-C 9. Follow up with your primary care doctor 7-10 days after discharge. 10. Contact [facility] with any questions, . Keep incision clean, dry, intact. While showering, cover fusion tape with Saran wrap. Keep fusion tape on until follow-up appointment office in 2 weeks. Discharge Disposition: HOME WITH HOME HEALTH SERVICES
[2024-08-11] MEDS: IPRATROPIUM-ALBUTEROL 3 ML NEB INHALATION SCH (12:46)
[2024-08-11] MEDS ORDERED: lamoTRIgine 25 MG TAB PO SCH (21:00)
== END 2024-08-11 13:33 | disposition home health service (06) ==
LOC: OR 09:02 → 4SSUR 14:00 → OR 08-11 13:33
PROVIDERS: ATTEND Orthopaedic Surgery
DX: M17.11 Unilateral primary osteoarthritis, right knee (principal); G89.18 Other acute postprocedural pain; D62 Acute posthemorrhagic anemia; I10 Essential (primary) hypertension; E78.5 Hyperlipidemia, unspecified; J44.9 Chronic obstructive pulmonary disease, unspecified; F41.9 Anxiety disorder, unspecified; F32.A Depression, unspecified; Z79.899 Other long term (current) drug therapy; Z87.891 Personal history of nicotine dependence; Z86.73 Personal history of transient ischemic attack (TIA), and cerebral infarction without residual deficits; Z96.612 Presence of left artificial shoulder joint; Z96.611 Presence of right artificial shoulder joint; Z98.1 Arthrodesis status
CPT/HCPCS: 27447; 97161; 64999; 64448; 85025; 73560; C1713 ×2; C1776; C1751; J2250; J1100; J2405; J0690 ×2; J2795; J1171 ×2

== ENCOUNTER → 2025-03-22 | Outpatient (CLI) | payer MEDICARE ==
[2025-03-22 18:35] LABS: HCT 37.0 % (37.2-46.3); HGB 11.8 g/dL (12.0-15.0); MCH 29.1 pg (27.0-32.0); MCHC 31.9 g/dL (32.0-37.0); MCV 91.1 FL (80.0-97.0); NRBC Per 100 WBC 0 X 10*3/uL (0.00-0.01); Platelet Count 259 X 10*3/uL (140-440); RBC 4.06 X 10*6/uL (4.10-5.20); RDW 14.7 % (11.5-14.5); WBC 6.27 X 10*3/uL (4.50-10.00)
== END | disposition home or self-care (01) ==
LOC: LABPAT 14:34
PROVIDERS: ATTEND Surgery
DX: Z01.818 Encounter for other preprocedural examination (principal); K40.90 Unilateral inguinal hernia, without obstruction or gangrene, not specified as recurrent; R00.1 Bradycardia, unspecified
CPT/HCPCS: 85027; 86850; 86900; 86901; 93005

== ENCOUNTER 2025-03-23 06:01 | Day surgery (SDC) | payer MEDICARE ==
[2025-03-23] MEDS: IV FLUID CONTINUATION 1,000 ML IV ONE (06:23)
[2025-03-23] MEDS ORDERED: HYDROmorphone 0.5 MG/0.5 ML SYRINGE IVP PRN (07:00)
[2025-03-23] MEDS: DEXAMETHASONE SOD PHOSPHATE 4 MG/ML 1 ML VIAL IV ONE (07:09)
[2025-03-23] MEDS: LACTATED RINGERS 1,000 ML IV SCH (07:09)
[2025-03-23] MEDS: HEPARIN SODIUM,PORCINE 5,000 UNIT/ML 1 ML VIAL SQ PRN (07:10)
[2025-03-23] MEDS: ONDANSETRON 4 MG/2 ML VIAL IVP ONE (07:10)
[2025-03-23] MEDS: ACETAMINOPHEN TAB 500 MG TAB PO PRN (07:10)
[2025-03-23] MEDS ORDERED: GLYCOPYRROLATE 0.2 MG/ML 2 ML VIAL ONE (07:31)
[2025-03-23] MEDS ORDERED: NEOSTIGMINE 1 MG/ML 10 ML VIAL ONE (07:31)
[2025-03-23] MEDS ORDERED: fentaNYL (PF) 50 MCG/ML 2 ML AMP ONE (07:31)
[2025-03-23] MEDS ORDERED: KETOROLAC 15 MG/ML 1 ML VIAL ONE (07:31)
[2025-03-23] MEDS ORDERED: LIDOCAINE 1% INJ 10MG/ML (20 ML MDV) ONE (07:31)
[2025-03-23] MEDS ORDERED: PROPOFOL 10 MG/ML 20 ML VIAL IV ONE (07:31)
[2025-03-23] MEDS ORDERED: ROCURONIUM 10 MG/ML (5 ML VIAL) IV ONE (07:31)
[2025-03-23] MEDS ORDERED: ePHEDrine 50 MG/ML 1 ML VIAL ONE (07:31)
[2025-03-23] MEDS: LIDOCAINE 1%-EPI 1:100,000 20 ML VIAL SQ ONE ×2 (07:33→08:00)
[2025-03-23 08:59] VITALS: TEMP 97.5
--- NOTE | 2025-03-23 09:03 | P.OP ---
Date of Procedure: 03/23/25 Preoperative Diagnosis: Right inguinal hernia Postoperative Diagnosis: Right inguinal hernia Procedure(s) Performed: Diagnostic laparoscopy Open repair of right inguinal hernia with Prolene hernia mesh system plug Anesthesia: AGUSTINA Surgeon: Gurmeet Pagan Estimated Blood Loss (ml): 5 Pathology: none sent Condition: stable Disposition: PACU Description of Procedure: The patient was placed on the operative table in the supine position. She received general anesthesia. Her abdomen is prepped draped in sterile fashion. The skin was incised at the trocar sites. Then using a 5 mm optical trocar under direct vision the peritoneal cavity was entered. The patient had a very t hin abdominal wall. There was some gas leak around the trocar site. Next a 8 mm robotic trocars placed in the right and left lateral position. Patient had subcutaneous insufflation of gas. At this point it was decided to convert the procedure to an open procedure. The trocars were withdrawn. A standard inguinal hernia incision was made over the right inguinal hernia. Then using blunt sharp/electrocautery the hernia sac was dissected free from subtenons tissues. The fascia external bleak was opened. And then the hernia sac was then converted back to the peritoneal cavity. The large Prolene hernia mesh plug was placed into the inguinal canal. The inferior leaf expanded. The superior leaf was attached to the pubic pubic tubercle medially and the transversalis fascia laterally. The fascia external bleak was then closed with 0 Vicryl. The skin was closed with maría. Patient Toller procedure well. He was sent to recovery room in stable condition.
[2025-03-23 10:55] VITALS: BP 100/53; PULSE 68; RESP 16
== END 2025-03-23 11:40 | disposition home or self-care (01) ==
LOC: OR 06:01
PROVIDERS: ATTEND Surgery
DX: K40.90 Unilateral inguinal hernia, without obstruction or gangrene, not specified as recurrent (principal); I63.9 Cerebral infarction, unspecified; E78.5 Hyperlipidemia, unspecified; I10 Essential (primary) hypertension; F41.9 Anxiety disorder, unspecified; F32.A Depression, unspecified; Z89.231 Acquired absence of right shoulder; Z89.232 Acquired absence of left shoulder; Z89.521 Acquired absence of right knee; Z79.02 Long term (current) use of antithrombotics/antiplatelets; Z79.899 Other long term (current) drug therapy
CPT/HCPCS: 49505; C1781; J1644; J1100; J2710; J2405; J0690; J2003; J3010; J1885; J2704; J1596

== ENCOUNTER 2025-03-23 19:14 | Emergency (ER) | payer MEDICARE ==
[2025-03-23 19:18] VITALS: RESP 18
[2025-03-23] MEDS: Acetaminophen-Codeine 300-30mg TAB PO STA (19:39)
--- NOTE | 2025-03-23 20:17 | ED ---
Recheck HPI - General Chief Complaint: Recheck/Abnormal Lab/Rx Stated Complaint: bleeding post hernia surgery Time Seen by Provider: 03/23/25 19:19 Source: patient Mode of arrival: wheelchair Limitations: no limitations - History of Present Illness Initial Comments: 89-year-old female presenting with chief complaint of bleeding from her surgical site. Patient had an open hernia repair earlier today with Dr. Pagan. States that she went home and slept for most of the day, she woke up around 6 PM then when she stood up she had bleeding from the wound. She is having no increased pain. No blood thinners. No dizziness or weakness. No wound dehiscence. - Related Data Home Medications Medication Instructions Recorded Confirmed Oxybutynin Xl [Ditropan XL] 10 mg PO DAILY 07/22/14 03/23/25 Ergocalciferol [Vitamin D2 (1250 1,250 mcg PO MO 08/28/21 03/23/25 Mcg = 79219 Iu)] Pregabalin [Lyrica] 75 mg PO TID 08/28/21 03/23/25 Sertraline [Zoloft] 200 mg PO DAILY 08/28/21 03/23/25 lamoTRIgine [LaMICtal] 100 mg PO HS 08/28/21 03/23/25 traZODone HCL 50 mg PO HS 08/28/21 03/23/25 Atorvastatin Calcium 20 mg PO DAILY 03/21/25 03/23/25 Glycopyrrolate 1 mg PO TID PRN 03/21/25 03/23/25 Previous Rx's Medication Instructions Recorded traMADol HCl [Ultram] 50 mg PO Q8H PRN #27 tab 09/06/21 Acetaminophen Tab [Tylenol] 650 mg PO Q6H #30 tab 03/23/25 Docusate [Colace] 100 mg PO BID #20 capsule 03/23/25 Ibuprofen [Motrin] 600 mg PO Q6HR PRN #40 tab 03/23/25 oxyCODONE HCL [OxyIR] 5 mg PO Q6H PRN 3 Days #10 tab 03/23/25 Allergies Allergy/AdvReac Type Severity Reaction Status Date / Time No Known Allergies Allergy Verified 03/23/25 19:19 Review of Systems ROS Statement: Those systems with pertinent positive or pertinent negative responses have been documented in the HPI. ROS Other: All systems not noted in ROS Statement are negative. Past Medical History Past Medical History: CVA/TIA, Hearing Disorder / Deafness, Hyperlipidemia, Hypertension, Osteoarthritis (OA) Additional Past Medical History / Comment(s): questionable TIA few years ago- no residual effects. urinary incontinence- wears brief/pad. [employer], has hearing aids but currently not working. History of Any Multi-Drug Resistant Organisms: None Reported Past Surgical History: Back Surgery, Hernia Repair, Hysterectomy, Joint Replacement, Orthopedic Surgery Additional Past Surgical History / Comment(s): shattered left patella repair, fx. right elbow repair, left elbow surg, brandon shoulder replacement, lumbar fusion . Right knee replacement 2023 Past Anesthesia/Blood Transfusion Reactions: No Reported Reaction Additional Past Anesthesia/Blood Transfusion Reaction / Comment(s): pt states morphine lowered blood pressure with lumbar fusion. Past Psychological History: Anxiety, Depression Smoking Status: Former smoker Past Alcohol Use History: None Reported Past Drug Use History: None Reported - Past Family History Mother Family Medical History: No Reported History Father Family Medical History: Diabetes Mellitus General Exam Limitations: no limitations General appearance: alert, in no apparent distress Head exam: Present: atraumatic, normocephalic, normal inspection Eye exam: Present: normal appearance, EOMI Neck exam: Present: normal inspection. Absent: meningismus Respiratory exam: Absent: respiratory distress Cardiovascular Exam: Present: regular rate Neurological exam: Present: alert, oriented X3 Psychiatric exam: Present: normal affect, normal mood Skin exam: Present: other (Patient has 2 small incisions and one larger incision across the abdomen. When she stands there is a small amount of trickling of blood from in between the maría. There is no evidence of wound dehiscence. Patient is not hemorrhaging.) Course Vital Signs 03/23/25 03/23/25 19:16 20:22 Temperature 98.4 F 98.2 F Pulse Rate 67 85 Respiratory 18 18 Rate Blood Pressure 95/46 97/52 O2 Sat by Pulse 94 L 98 Oximetry Medical Decision Making - Medical Decision Making Was pt. sent in by a medical professional or institution (, PA, ROLL[employer] UTILITY WORKER, urgent care, hospital, or correction...) When possible be specific @ -No Did you speak to anyone other than the patient for history (EMS, parent, family, police, friend...)? What history was obtained from this source @ -No Did you review nursing and triage notes (agree or disagree)? Why? @ -I reviewed and agree with nursing and triage notes Were old charts reviewed (outside hosp., previous admission, EMS record, old EKG, old radiological studies, urgent care reports/EKG's, correction records)? Report findings @ -No old charts were reviewed Differential Diagnosis (chest pain, altered mental status, abdominal pain women, abdominal pain men, vaginal bleeding, weakness, fever, dyspnea, syncope, headache, dizziness, GI bleed, back pain, seizure, CVA, palpatations, mental health, musculoskeletal)? @ -Differential includes wound dehiscence, postop hemorrhage, postop bleeding, not an all-inclusive list EKG interpreted by me (3pts min.). @ -As above X-rays interpreted by me (1pt min.). @ -None done CT interpreted by me (1pt min.). @ -None done U/S interpreted by me (1pt. min.). @ -None done What testing was considered but not performed or refused? (CT, X-rays, U/S, labs)? Why? @ -None What meds were considered but not given or refused? Why? @ -None Did you discuss the management of the patient with other professionals (professionals i.e. , PA, [employer] UTILITY WORKER, lab, RT, psych nurse, social studies teacher, zigzag machine operator, teacher, forward air controller/air officer, case management rn)? Give summary @ -No Was smoking cessation discussed for >3mins.? @ -No Was critical care preformed (if so, how long)? @ -No Were there social determinants of health that impacted care today? How? (Homelessness, low income, unemployed, alcoholism, drug addiction, transportation, low edu. Level, literacy, decrease access to med. care, detention, rehab)? @ -No Was there de-escalation of care discussed even if they declined (Discuss DNR or withdrawal of care, Hospice)? DNR status @ -No What co-morbidities impacted this encounter? (DM, HTN, Smoking, COPD, CAD, Cancer, CVA, ARF, Chemo, Hep., AIDS, mental health diagnosis, sleep apnea, morbid obesity)? @ -None Was patient admitted / discharged? Hospital course, mention meds given and route, prescriptions, significant lab abnormalities, going to OR and other pertinent info. @ -89-year-old female here with bleeding from her surgical site. Patient had a hernia repair with Dr. Berg earlier today. When she stood up from her nap today at around 6 PM she had bleeding from around the maría on her lower abdomen incision. On exam the wound appears well-approximated with no evidence of dehiscence. We stood the patient up and she had a small amount of trickling from 1 area of the incision. We applied pressure and had the patient sit back down. She is resting showing no acute signs of distress. She is not on any blood thinners. She is educated on today's findings and supportive management at home. Instructed to follow-up with her surgeon and educated on alarm symptoms that should prompt immediate reevaluation. Follow-up with PCP. Report back to ER with any new or worsening symptoms. Discussed return parameters and answered all questions. Patient conveyed verbal understanding and agreed to the plan. I discussed this case in detail with my attending Dr. Galaviz Undiagnosed new problem with uncertain prognosis? @ -No Drug Therapy requiring intensive monitoring for toxicity (Heparin, Nitro, Insulin, Cardizem)? @ -No Were any procedures done? @ -No Diagnosis/symptom? @ -Bleeding from surgical incision Acute, or Chronic, or Acute on Chronic? @ -Acute Uncomplicated (without systemic symptoms) or Complicated (systemic symptoms)? @ -Uncomplicated Side effects of treatment? @ -No Exacerbation, Progression, or Severe Exacerbation? @ -No Poses a threat to life or bodily function? How? (Chest pain, USA, ID, pneumonia, PE, COPD, DKA, ARF, appy, cholecystitis, CVA, Diverticulitis, Homicidal, Suicidal, threat to staff... and all critical care pts) @ -Unlikely Disposition Clinical Impression: Postoperative bleeding from incision Disposition: HOME SELF-CARE Condition: Good Additional Instructions: Follow-up with your surgeon. Report back to ER with any new or worsening symptoms. Is patient prescribed a controlled substance at d/c from ED?: No Referrals: Azam Puri MD [Primary Care Provider] - 1-2 days Gurmeet Pagan MD [STAFF PHYSICIAN] - 1-2 days Time of Disposition: 20:17
[2025-03-23 20:24] VITALS: BP 97/52; PULSE 85; TEMP 98.2
== END 2025-03-23 20:38 | disposition home or self-care (01) ==
LOC: EC 19:14
DX: L76.22 Postprocedural hemorrhage of skin and subcutaneous tissue following other procedure (principal); Z87.891 Personal history of nicotine dependence
CPT/HCPCS: 99283

== ENCOUNTER 2025-03-24 12:18 | Emergency (ER) | payer MEDICARE ==
[2025-03-24 12:36] VITALS: TEMP 97.9
--- NOTE | 2025-03-24 13:09 | ED ---
Recheck HPI - General Chief Complaint: Recheck/Abnormal Lab/Rx Stated Complaint: Post-Op Issue Time Seen by Provider: 03/24/25 13:08 Source: patient, family, RN notes reviewed, old records reviewed Mode of arrival: ambulatory Limitations: no limitations - History of Present Illness Initial Comments: 89-year-old female presented to ER for evaluation of post op bleeding. Patient underwent open right ventral hernia repair with Dr. Pagan yesterday. Patient reports that she slept for most of the day and upon waking up and standing she noticed bleeding from surgical sites. She was evaluated in the emergency department last night and ultimately discharged home advised to follow-up with PCP and general surgery. Patient reports today she stood up from the toilet and noticed a large amount of blood from incision again. Patient was seen at PCP and advised to come to the emergency department for further evaluation. No blood thinner use. Patient denies any fevers, nausea, vomiting, abdominal pain or urinary complaints. Patient does admit to flatulence and states she has not had a bowel movement since surgery. She has not notified general surgery at this time. - Related Data Home Medications Medication Instructions Recorded Confirmed Oxybutynin Xl [Ditropan XL] 10 mg PO DAILY 07/22/14 03/23/25 Ergocalciferol [Vitamin D2 (1250 1,250 mcg PO MO 08/28/21 03/23/25 Mcg = 93913 Iu)] Pregabalin [Lyrica] 75 mg PO TID 08/28/21 03/23/25 Sertraline [Zoloft] 200 mg PO DAILY 08/28/21 03/23/25 lamoTRIgine [LaMICtal] 100 mg PO HS 08/28/21 03/23/25 traZODone HCL 50 mg PO HS 08/28/21 03/23/25 Atorvastatin Calcium 20 mg PO DAILY 03/21/25 03/23/25 Glycopyrrolate 1 mg PO TID PRN 03/21/25 03/23/25 Previous Rx's Medication Instructions Recorded traMADol HCl [Ultram] 50 mg PO Q8H PRN #27 tab 09/06/21 Acetaminophen Tab [Tylenol] 650 mg PO Q6H #30 tab 03/23/25 Docusate [Colace] 100 mg PO BID #20 capsule 03/23/25 Ibuprofen [Motrin] 600 mg PO Q6HR PRN #40 tab 03/23/25 oxyCODONE HCL [OxyIR] 5 mg PO Q6H PRN 3 Days #10 tab 03/23/25 Allergies Allergy/AdvReac Type Severity Reaction Status Date / Time No Known Allergies Allergy Verified 03/24/25 12:36 Review of Systems ROS Statement: Those systems with pertinent positive or pertinent negative responses have been documented in the HPI. ROS Other: All systems not noted in ROS Statement are negative. Past Medical History Past Medical History: CVA/TIA, Hearing Disorder / Deafness, Hyperlipidemia, Hypertension, Osteoarthritis (OA) Additional Past Medical History / Comment(s): questionable TIA few years ago- no residual effects. urinary incontinence- wears brief/pad. [employer], has hearing aids but currently not working. History of Any Multi-Drug Resistant Organisms: None Reported Past Surgical History: Back Surgery, Hernia Repair, Hysterectomy, Joint Replacement, Orthopedic Surgery Additional Past Surgical History / Comment(s): shattered left patella repair, fx. right elbow repair, left elbow surg, brandon shoulder replacement, lumbar fusion . Right knee replacement 2023 Past Anesthesia/Blood Transfusion Reactions: No Reported Reaction Additional Past Anesthesia/Blood Transfusion Reaction / Comment(s): pt states morphine lowered blood pressure with lumbar fusion. Past Psychological History: Anxiety, Depression Smoking Status: Former smoker Past Alcohol Use History: None Reported Past Drug Use History: None Reported - Past Family History Mother Family Medical History: No Reported History Father Family Medical History: Diabetes Mellitus General Exam Limitations: no limitations General appearance: alert, in no apparent distress Respiratory exam: Present: normal lung sounds bilaterally. Absent: respiratory distress, wheezes, rales, rhonchi, stridor Cardiovascular Exam: Present: regular rate, normal rhythm, normal heart sounds. Absent: systolic murmur, diastolic murmur, rubs, gallop, clicks GI/Abdominal exam: Present: soft, normal bowel sounds. Absent: distended, tenderness, guarding, rebound, rigid Neurological exam: Present: alert, oriented X3, CN II-XII intact Skin exam: Present: warm, dry, intact, normal color, other (3 vertical surgical incisions noted to upper abdomen. There is a another horizontal larger incision to right lower quadrant. Magnolia are intact at all sutures. There is no wound dehiscence. No hemorrhaging or active bleeding noted. Mild surrounding contusion to all incision sites) Course Vital Signs 03/24/25 03/24/25 12:33 15:39 Temperature 97.9 F Pulse Rate 75 78 Respiratory 22 18 Rate Blood Pressure 168/92 145/94 O2 Sat by Pulse 98 97 Oximetry Medical Decision Making - Medical Decision Making Was pt. sent in by a medical professional or institution (, [facility], LAUNDR[employer] TUB MAKER, urgent care, hospital, or long-term...) When possible be specific @ -No Did you speak to anyone other than the patient for history (EMS, parent, family, police, friend...)? What history was obtained from this source @ -Family, bedside, aiding in HPI past medical history Did you review nursing and triage notes (agree or disagree)? Why? @ -I reviewed and agree with nursing and triage notes Were old charts reviewed (outside hosp., previous admission, EMS record, old EKG, old radiological studies, urgent care reports/EKG's, long-term records)? Report findings @ -I reviewed surgical note and ER visit from 03-23-2025. Patient underwent open right ventral hernia repair with Dr. Pagan. Patient was ultimately discharged home and return to the ER last night for evaluation of postoperative incision bleeding. There was no active bleeding on exam and patient was instructed on conservative treatment options and discharged home. Differential Diagnosis (chest pain, altered mental status, abdominal pain women, abdominal pain men, vaginal bleeding, weakness, fever, dyspnea, syncope, headache, dizziness, GI bleed, back pain, seizure, CVA, palpatations, mental health, musculoskeletal)? @ -Wound dehiscence, cellulitis, wound infection,... This list is not meant to be all-inclusive EKG interpreted by me (3pts min.). @ -None done X-rays interpreted by me (1pt min.). @ -None done CT interpreted by me (1pt min.). @ -None done U/S interpreted by me (1pt. min.). @ -None done What testing was considered but not performed or refused? (CT, X-rays, U/S, labs)? Why? @ -None What meds were considered but not given or refused? Why? @ -None Did you discuss the management of the patient with other professionals (professionals i.e. Dr., PA, LAUNDRY TUB MAKER, lab, RT, psych nurse, social services assistant, master deputy sheriff court security, teacher, planned giving officer, case resource manager)? Give summary @ -No Was smoking cessation discussed for >3mins.? @ -No Was critical care preformed (if so, how long)? @ -No Were there social determinants of health that impacted care today? How? (Homelessness, low income, unemployed, alcoholism, drug addiction, transportation, low edu. Level, literacy, decrease access to med. care, snf, rehab)? @ -No Was there de-escalation of care discussed even if they declined (Discuss DNR or withdrawal of care, Hospice)? DNR status @ -No What co-morbidities impacted this encounter? (DM, HTN, Smoking, COPD, CAD, Cancer, CVA, ARF, Chemo, Hep., AIDS, mental health diagnosis, sleep apnea, morbid obesity)? @ -None Was patient admitted / discharged? Hospital course, mention meds given and route, prescriptions, significant lab abnormalities, going to OR and other pertinent info. @ -Discharge. 89-year-old female presented to ER for evaluation of postoperative surgical incision bleeding. No blood thinner use vital signs stable. Exam remarkable for 3 vertical surgical incisions to the mid abdomen. There is another horizontal longer incision noted to right lower quadrant. Magnolia are in place with no wound dehiscence or focal abdominal tenderness. There is no surrounding erythema, foul odor, edema, warmth or purulent drainage noted to wounds. During exam I instructed patient to stand up and Valsalva as she reports while going to the bathroom today and upon standing she had a large amount of blood coming from wound. After Valsalva, there was a scant amount of serosanguineous discharge noted from larger incision. Patient remained pain- free. Given repeat visit and recent surgical intervention CBC was obtained to monitor her hemoglobin which was stable at 10.0. Upon reevaluation patient is requesting discharge. I advised patient to contact general surgery, Dr. Pagan, tomorrow to make him aware of her symtpoms and for further fillow-up. Wound care and conservative treatment options discussed. Strict return parameters discussed. Patient discharged in stable condition. Patient verbally expressed understanding and agreement with care plan. Case discussed with ED attending, Dr. Galaviz Undiagnosed new problem with uncertain prognosis? @ -No Drug Therapy requiring intensive monitoring for toxicity (Heparin, Nitro, Insulin, Cardizem)? @ -No Were any procedures done? @ -No Diagnosis/symptom? @ -Wound check Acute, or Chronic, or Acute on Chronic? @ -Acute Uncomplicated (without systemic symptoms) or Complicated (systemic symptoms)? @ -Uncomplicated Side effects of treatment? @ -No Exacerbation, Progression, or Severe Exacerbation? @ -No Poses a threat to life or bodily function? How? (Chest pain, USA, MD, pneumonia, PE, COPD, DKA, ARF, appy, cholecystitis, CVA, Diverticulitis, Homicidal, Suicidal, threat to staff... and all critical care pts) @ -No - Lab Data Result diagrams: 03/24/25 13:44 Lab Results 03/24/25 Range/Units 13:44 WBC 6.19 (4.50-10.00) 10*3/uL RBC 3.41 L (4.10-5.20) 10*6/uL Hgb 10.0 L (12.0-15.0) g/dL Hct 30.3 L (37.2-46.3) % MCV 88.9 (80.0-97.0) fL MCH 29.3 (27.0-32.0) pg MCHC 33.0 (32.0-37.0) g/dL Plt Count 209 (140-440) 10*3/uL MPV 10.7 (9.5-12.2) fL Immature Gran % (Auto) 0.5 % Neutrophils % 78.2 % Lymphocytes % 12.8 % Monocytes % 7.1 % Eosinophils % 0.6 % Basophils % 0.8 % Immature Gran # 0.03 (0.00-0.04) 10*3/uL Neutrophils # 4.84 (1.80-7.70) 10*3/uL Lymphocytes # 0.79 L (0.90-5.00) 10*3/uL Monocytes # 0.44 (0.20-1.00) 10*3/uL Eosinophils # 0.04 (0.04-0.35) 10*3/uL Basophils # 0.05 (0.00-0.10) 10*3/uL Disposition Clinical Impression: Postoperative bleeding from incision Disposition: HOME SELF-CARE Condition: Stable Instructions (If sedation given, give patient instructions): Staple Care (ED), Acute Wounds (ED) Additional Instructions: I recommend you contact Dr. Pagan office tomorrow to notify them of your symptoms. Keep area clean and dry and monitor for signs infection. Return to the ER for any new or worsening concerns. Is patient prescribed a controlled substance at d/c from ED?: No Referrals: Azam Puri MD [Primary Care Provider] - 1-2 days Gurmeet Pagan MD [STAFF PHYSICIAN] - 1-2 days Time of Disposition: 15:17
[2025-03-24 14:28] LABS: Basophils # (A) 0.05 10*3/uL (0.00-0.10); Basophils % (A) 0.8 %; Eosinophils # (A) 0.04 10*3/uL (0.04-0.35); Eosinophils % (A) 0.6 %; HCT 30.3 % (37.2-46.3); HGB 10.0 g/dL (12.0-15.0); Lymphocytes # (A) 0.79 10*3/uL (0.90-5.00); Lymphocytes % (A) 12.8 %; MCH 29.3 pg (27.0-32.0); MCHC 33.0 g/dL (32.0-37.0); MCV 88.9 fL (80.0-97.0); Monocytes # (A) 0.44 10*3/uL (0.20-1.00); Monocytes % (A) 7.1 %; Neutrophils # (A) 4.84 10*3/uL (1.80-7.70); Neutrophils % (A) 78.2 %; Platelet Count 209 10*3/uL (140-440); RBC 3.41 10*6/uL (4.10-5.20); RDW 14.9 % (11.5-14.5); WBC 6.19 10*3/uL (4.50-10.00)
[2025-03-24 15:39] VITALS: BP 145/94; PULSE 78; RESP 18
== END 2025-03-24 15:39 | disposition home or self-care (01) ==
LOC: EC 12:18
DX: L76.22 Postprocedural hemorrhage of skin and subcutaneous tissue following other procedure (principal); Z87.891 Personal history of nicotine dependence; Z86.73 Personal history of transient ischemic attack (TIA), and cerebral infarction without residual deficits
CPT/HCPCS: 36415; 85025; 99283